=== PATIENT | female | born 1945 | race Caucasian/White ===

== ENCOUNTER 2018-02-02 21:39 | Inpatient (IN) | payer OTHER ==
[2018-02-02] MEDS ORDERED: FENTANYL CITR 100 MCG/2 ML ONE (22:45)
[2018-02-02] MEDS ORDERED: ONDANSETRON 4 MG/2 ML VIAL ONE (22:45)
[2018-02-02] MEDS ORDERED: NA CHLORIDE 0.9% 500 ML ONE (22:46)
--- NOTE | 2018-02-02 23:32 | EDPHYS ---
Physician Documentation [facility] Name: Zoe Jon Age: 72 yrs Sex: Female : 1945 Arrival Date: 02/02/2018 Time: 21:50 Bed 14 Private MD: Selena Sofia F ED Physician Feliberto Oconnor HPI: 02/02 22:20 This 72 yrs old Female presents to ER via Wheelchair with complaints of Leg dixie Pain. 22:20 The patient presents with decreased range of motion, pain, that is acute. The dixie complaints affect the right ankle, right Achilles and anterior aspect of right ankle. Context: resulted from the patient falling, the patient is not able to bear weight, the patient is able to ambulate, with moderate difficulty. Onset: The symptoms/episode began/occurred 2 week(s) ago. Modifying factors: The symptoms are alleviated by elevating leg, remaining still, the symptoms are aggravated by movement, weight bearing. Associated signs and symptoms: The patient has no apparent associated signs or symptoms. Treatment prior to arrival includes: icing the affected extremity, over the counter medications. Severity of symptoms: At their worst the symptoms were mild, moderate, in the emergency department the symptoms are unchanged. The patient has not experienced similar symptoms in the past. Historical: - Allergies: 21:57 Cephalexin Monohydrate; fc - Home Meds: 21:57 lisinopril 30 mg oral tab 1 tab once daily [Active]; metoprolol tartrate 25 mg oral tab fc 1 tab once daily [Active]; furosemide 20 mg Oral tab every other day [Active]; simvastatin 10 mg Oral tab 1 tab nightly [Active]; amlodipine 2.5 mg tab 1 tab once daily [Active]; Warfarin 3.25 mg Oral once daily [Active]; Novolin 70/30 Innolet Sub-Q 20 units in morning and 15 un its every evening [Active]; Neha-Vivi 0.8 mg oral tab daily [Active]; Combigan 0.2-0.5 % ophthalmic drop 1 drop every 12 hours [Active]; Lumigan 0.01 % ophthalmic drop nightly [Active]; - PMHx: 21:57 CKD; Diabetes - NIDDM; Glaucoma; High Cholesterol; Hypertension; Pacemaker; fc - Immunization history:: Last tetanus immunization: unknown. - Social history:: Smoking status: Patient/guardian denies using tobacco. - Ebola Screening: : Patient negative for fever greater than or equal to 101.5 degrees Fahrenheit, and additional compatible Ebola Virus Disease symptoms Patient denies exposure to infectious person Patient denies travel to an Ebola-affected area in the 21 days before illness onset. - Family history:: not pertinent. ROS: 22:20 Constitutional: Negative for fever, chills, and weight loss, Eyes: Negative for injury, dixie pain, redness, and discharge, ENT: Negative for injury, pain, and discharge, Neck: Negative for injury, pain, and swelling, Cardiovascular: Negative for chest pain, palpitations, and edema, Respiratory: Negative for shortness of breath, cough, wheezing, and pleuritic chest pain, Abdomen/GI: Negative for abdominal pain, nausea, vomiting, diarrhea, and constipation, Back: Negative for injury and pain, : Negative for injury, bleeding, discharge, and swelling, Skin: Negative for injury, rash, and discoloration, Neuro: Negative for headache, weakness, numbness, tingling, and seizure, Psych: Negative for depression, anxiety, suicide ideation, homicidal ideation, and hallucinations, Allergy/Immunology: Negative for hives, rash, and allergies, Endocrine: Negative for neck swelling, polydipsia, polyuria, polyphagia, and marked weight changes, Hematologic/Lymphatic: Negative for swollen nodes, abnormal bleeding, and unusual bruising. 22:20 MS/extremity: Positive for decreased range of motion, pain, swelling, tenderness, of the right ankle and anterior aspect of right ankle. Exam: 22:20 Constitutional: This is a well developed, well nourished patient who is awake, alert, dixie and in no acute distress. Head/Face: Normocephalic, atraumatic. Eyes: Pupils equal round and reactive to light, extra-ocular motions intact. Lids and lashes normal. Conjunctiva and sclera are non-icteric and not injected. Cornea within normal limits. Periorbital areas with no swelling, redness, or edema. ENT: Nares patent. No nasal discharge, no septal abnormalities noted. Tympanic membranes are normal and external auditory canals are clear. Oropharynx with no redness, swelling, or masses, exudates, or evidence of obstruction, uvula midline. Mucous membranes moist. Neck: Trachea midline, no thyromegaly or masses palpated, and no cervical lymphadenopathy. Supple, full range of motion without nuchal rigidity, or vertebral point tenderness. No Meningismus. Chest/axilla: Normal chest wall appearance and motion. Nontender with no deformity. No lesions are appreciated. Cardiovascular: Regular rate and rhythm with a normal S1 and S2. No gallops, murmurs, or rubs. Normal PMI, no JVD. No pulse deficits. Respiratory: Lungs have equal breath sounds bilaterally, clear to auscultation and percussion. No rales, rhonchi or wheezes noted. No increased work of breathing, no retractions or nasal flaring. Abdomen/GI: Soft, non-tender, with normal bowel sounds. No distension or tympany. No guarding or rebound. No evidence of tenderness throughout. Back: No spinal tenderness. No costovertebral tenderness. Full range of motion. Female : Normal external genitalia. Skin: Warm, dry with normal turgor. Normal color with no rashes, no lesions, and no evidence of cellulitis. Neuro: Awake and alert, GCS 15, oriented to person, place, time, and situation. Cranial nerves II-XII grossly intact. Motor strength 5/5 in all extremities. Sensory grossly intact. Cerebellar exam normal. Normal gait. Psych: Awake, alert, with orientation to person, place and time. Behavior, mood, and affect are within normal limits. 22:20 Musculoskeletal/extremity: DVT Exam: pain, swelling, tenderness, positive Homans' sign noted on exam, bluish discoloration, erythema, increased warmth, that is mild. Vital Signs: 21:50 BP 148 / 64; Pulse 86; Resp 18; Temp 97.9(O); Pulse Ox 98% on R/A; Weight 84.37 kg (R); fc Height 5 ft. 2 in. (157.48 cm) (R); Pain 10/10; 22:10 BP 145 / 87; Pulse 80; Resp 18; Pulse Ox 100% on R/A; lc1 22:30 BP 145 / 47; Pulse 79; Resp 18; Pulse Ox 99% on R/A; Pain 10/10; lc1 23:15 BP 157 / 53; Pulse 80; Resp 18; Pulse Ox 100% on R/A; Pain 10/10; lc1 08 00:15 BP 153 / 96; Pulse 78; Resp 18; Pulse Ox 100% on R/A; lc1 02/02 21:50 Body Mass Index 34.02 (84.37 kg, 157.48 cm) fc MDM: 02/02 22:15 Patient medically screened. [facility] 22:23 Data reviewed: vital signs, nurses notes, EKG, radiologic studies. [facility] 02/02 22:20 Order name: CBC with Diff; Complete Time: 01:01 [facility] 02/02 22:24 Order name: Ptt, Activated; Complete Time: 01:01 [facility] 02/02 22:24 Order name: PT-INR; Complete Time: 01:01 [facility] 02/02 23:42 Order name: Basic Metabolic Panel EDMS 02/02 23:42 Order name: Basic Metabolic Panel EDMS 02/02 23:42 Order name: CBC with Automated Diff EDMS 02/02 23:42 Order name: CBC with Automated Diff EDMS 02/02 23:42 Order name: Basic Metabolic Panel; Complete Time: 01:01 [facility] 02/02 23:42 Order name: Ckmb; Complete Time: 01:01 [facility] 02/02 23:42 Order name: CPK; Complete Time: 01:01 [facility] 02/02 23:42 Order name: LFT's; Complete Time: 01:01 [facility] 02/02 23:42 Order name: Magnesium; Complete Time: 01:01 [facility] 02/02 23:42 Order name: NT PRO-BNP; Complete Time: 01:01 [facility] 02/02 22:20 Order name: Ankle Right 3 View XRAY [facility] 02/02 22:20 Order name: Tib Fib Right XRAY [facility] 02/02 22:20 Order name: US Extremity Venous Unilateral Ltd [facility] 02/02 23:29 Order name: Splint - Ankle: Posterior; Complete Time: 01:13 [facility] 02/02 23:42 Order name: CONS Physician Consult EDSC 02/02 23:42 Order name: CONS Physician Consult EDMS 02/02 23:42 Order name: Troponin (emerg Dept Use Only); Complete Time: 01:01 [facility] 02/02 23:42 Order name: XRAY Chest (1 view) [facility] 02/02 23:42 Order name: EKG; Complete Time: 23:43 [facility] 02/02 23:42 Order name: Cardiac monitoring; Complete Time: 00:22 [facility] 02/02 23:42 Order name: EKG - Nurse/Tech; Complete Time: 00:22 [facility] 02/02 23:42 Order name: IV Saline Lock; Complete Time: 23:43 [facility] 02/02 23:42 Order name: Labs collected and sent; Complete Time: 23:43 [facility] 02/02 23:42 Order name: O2 Per Protocol; Complete Time: 23:43 [facility] 02/02 23:42 Order name: O2 Sat Monitoring; Complete Time: 23:43 [facility] 02/02 23:42 Order name: Urine Dipstick-Ancillary (obtain specimen); Complete Time: 00:30 [facility] Administered Medications: 23:30 Drug: NS 0.9% 500 ml Route: IV; Rate: bolus; Site: left forearm; [facility] 02/03 00:29 Follow up: IV Status: Infusion continued upon admission [facility] 02/02 23:30 Drug: fentaNYL (PF) 25 mcg Route: IVP; Site: left forearm; [facility] 02/03 00:28 Follow up: Response: No adverse reaction [facility] 02/02 23:30 Drug: fentaNYL (PF) 25 mcg Route: IVP; Site: left forearm; [facility] 02/03 00:27 Follow up: Response: No adverse reaction [facility] 02/02 23:30 Drug: Zofran 4 mg Route: IVP; Site: left forearm; [facility] 02/03 00:27 Follow up: Response: No adverse reaction [facility] Disposition: 02/02/18 23:32 Hospitalization ordered by Selena Sofia for Observation. Preliminary diagnosis are Fall due to bumping against object, Trimalleolar fracture of lower leg - right, Obesity, unspecified, Type 2 diabetes mellitus, Elevated white blood cell count, Anemia, unspecified, Unspecified kidney failure. - Bed requested for Telemetry/MedSurg (observation). - Status is Observation. lc1 - Condition is Stable. - Problem is new. - Symptoms have improved. UTI on Admission? No Signatures: Dispatcher [employer] Ryan Jarrett2 Feliberto Oconnor MD MD cha Chretien, Felicia RN RN Karen Vital 1 Corrections: (The following items were deleted from the chart) 02/02 23:53 22:20 COMPREHENSIVE METABOLIC PANEL+C.LAB.BRZ ordered. EDSC EDMS 02/03 00:01 02/02 23:32 Hospitalization Ordered by Selena Sofia MD for Observation. Preliminary rg2 diagnosis is Fall due to bumping against object; Trimalleolar fracture of lower leg - right; Obesity, unspecified; Type 2 diabetes mellitus. Bed requested for Telemetry/MedSurg (observation). Status is Observation. Condition is Stable. Problem is new. Symptoms have improved. UTI on Admission? No. dixie 02/03 01:03 00:01 02/02/2018 23:32 Hospitalization Ordered by Selena Sofia MD for Observation. dixie Preliminary diagnosis is Fall due to bumping against object; Trimalleolar fracture of lower leg - right; Obesity, unspecified; Type 2 diabetes mellitus. Bed requested for Telemetry/MedSurg (observation). Status is Observation. Condition is Stable. Problem is new. Symptoms have improved. UTI on Admission? No. rg2 01:45 01:03 02/02/2018 23:32 Hospitalization Ordered by Selena Sofia MD for Observation. lc1 Preliminary diagnosis is Fall due to bumping against object; Trimalleolar fracture of lower leg - right; Obesity, unspecified; Type 2 diabetes mellitus; Elevated white blood cell count; Anemia, unspecified; Unspecified kidney failure. Bed requested for Telemetry/MedSurg (observation). Status is Observation. Condition is Stable. Problem is new. Symptoms have improved. UTI on Admission? No. dixie
--- NOTE | 2018-02-02 23:32 | ER ---
Nurse's Notes [facility] Name: Zoe Jon Age: 72 yrs Sex: Female : 1945 Arrival Date: 02/02/2018 Time: 21:50 Bed 14 Private MD: Selena Sofia F Diagnosis: Fall due to bumping against object;Trimalleolar fracture of lower leg-right;Obesity, unspecified;Type 2 diabetes mellitus;Elevated white blood cell count;Anemia, unspecified;Unspecified kidney failure Presentation: 02/02 21:50 Presenting complaint: Patient states: that she was climbing into the bus and fell. fc States that she hurt her right leg, ankle and foot. The pain has continued to get worse with time. Now leg is swollen. Transition of care: patient was not received from another setting of care. Onset of symptoms was January 19, 2018. Risk Assessment: Do you want to hurt yourself or someone else? Patient reports no desire to harm self or others. Initial Sepsis Screen: Does the patient meet any 2 criteria? No. Patient's initial sepsis screen is negative. Does the patient have a suspected source of infection? No. Patient's initial sepsis screen is negative. Care prior to arrival: Medication(s) given: Tylenol, last dose yesterday. 21:50 Method Of Arrival: Wheelchair 21:50 Acuity: TRISTAN 4 fc Historical: - Allergies: 21:57 Cephalexin Monohydrate; fc - Home Meds: 21:57 lisinopril 30 mg oral tab 1 tab once daily [Active]; metoprolol tartrate 25 mg oral tab fc 1 tab once daily [Active]; furosemide 20 mg Oral tab every other day [Active]; simvastatin 10 mg Oral tab 1 tab nightly [Active]; amlodipine 2.5 mg tab 1 tab once daily [Active]; Warfarin 3.25 mg Oral once daily [Active]; Novolin 70/30 Innolet Sub-Q 20 units in morning and 15 un its every evening [Active]; Neha-Vivi 0.8 mg oral tab daily [Active]; Combigan 0.2-0.5 % ophthalmic drop 1 drop every 12 hours [Active]; Lumigan 0.01 % ophthalmic drop nightly [Active]; - PMHx: 21:57 CKD; Diabetes - NIDDM; Glaucoma; High Cholesterol; Hypertension; Pacemaker; fc - Immunization history:: Last tetanus immunization: unknown. - Social history:: Smoking status: Patient/guardian denies using tobacco. - Ebola Screening: : Patient negative for fever greater than or equal to 101.5 degrees Fahrenheit, and additional compatible Ebola Virus Disease symptoms Patient denies exposure to infectious person Patient denies travel to an Ebola-affected area in the 21 days before illness onset. - Family history:: not pertinent. Screenin:53 Abuse screen: Denies threats or abuse. Nutritional screening: No deficits noted. fc Tuberculosis screening: No symptoms or risk factors identified. Fall Risk Fall in past 12 months (25 points). No secondary diagnosis (0 pts). No IV (0 pts). Ambulatory Aid- Crutches/Cane/Walker (15 pts). Gait- Weak (10 pts.). Mental Status- Overestimates/Forgets Limitations (15 pts.). Total Osborn Fall Scale indicates Low Risk Score (25-44 pts). Fall prevention measures have been instituted. Side Rails Up X 2 Placed close to Nursing Station Frequent Obs/Assesments occuring As available Patient and Family Educated on Fall Prevention Program and strategies. Assessment: 22:10 General: Appears uncomfortable, Behavior is calm, cooperative. Pain: Complains of pain lc1 in right leg and anterior aspect of right ankle and right Achilles and right ankle Pain currently is 10 out of 10 on a pain scale. Quality of pain is described as aching, throbbing. Neuro: No deficits noted. Cardiovascular: Reports has pacemaker that is supposed to be checked soon. Respiratory: No deficits noted. GI: No deficits noted. : No signs and/or symptoms were reported regarding the genitourinary system. EENT: No signs and/or symptoms were reported regarding the EENT system. Derm: scabs to bilateral arms. Musculoskeletal: Reports pain in right leg and anterior aspect of right ankle and right Achilles and right ankle since several weeks ago that has gotten worse. Patient has decreased ROM to Right ankle with some non pitting swelling noted. 23:28 Reassessment: No changes from previously documented assessment. Patient and/or family lc1 updated on plan of care and expected duration. Pain level reassessed. 02/03 00:22 Reassessment: No changes from previously documented assessment. Patient and/or family lc1 updated on plan of care and expected duration. Pain level reassessed. Vital Signs: 02/02 21:50 BP 148 / 64; Pulse 86; Resp 18; Temp 97.9(O); Pulse Ox 98% on R/A; Weight 84.37 kg (R); Height 5 ft. 2 in. (157.48 cm) (R); Pain 10/10; 22:10 BP 145 / 87; Pulse 80; Resp 18; Pulse Ox 100% on R/A; lc1 22:30 BP 145 / 47; Pulse 79; Resp 18; Pulse Ox 99% on R/A; Pain 10/10; lc1 23:15 BP 157 / 53; Pulse 80; Resp 18; Pulse Ox 100% on R/A; Pain 10/10; lc1 02/03 00:15 BP 153 / 96; Pulse 78; Resp 18; Pulse Ox 100% on R/A; lc1 02/02 21:50 Body Mass Index 34.02 (84.37 kg, 157.48 cm) ED Course: 02/02 21:50 Patient arrived in ED. 21:50 Selena Sofia MD is Private Physician. 21:50 Arm band placed on Patient placed in an exam room, on a stretcher. 21:52 Triage completed. 21:53 Bed in low position. Call light in reach. fc 22:15 Feliberto Oconnor MD is Attending Physician. dixie 22:20 Karen Ch is Primary Nurse. 1 22:57 X-ray completed. Portable x-ray completed in exam room. Patient tolerated procedure bb2 well. 22:58 Ankle Right 3 View XRAY In Process Unspecified. EDMS 22:58 Tib Fib Right XRAY In Process Unspecified. EDMS 23:19 Ultrasound completed. Patient tolerated well. aa4 23:19 US Extremity Venous Unilateral Ltd In Process Unspecified. EDMS 23:29 Selena Sofia MD is Hospitalizing Provider. dixie 23:33 Inserted saline lock: 22 gauge in left wrist, using aseptic technique. rg2 02/03 00:22 No provider procedures requiring assistance completed. Patient admitted, IV remains in [address] intact. 00:35 Awaiting disposition. 1 01:01 Orthoglass splint: Posterior short lleg splint applied on right leg. rg2 Administered Medications: 02/02 23:30 Drug: NS 0.9% 500 ml Route: IV; Rate: bolus; Site: left forearm; [facility] 02/03 00:29 Follow up: IV Status: Infusion continued upon admission [facility] 02/02 23:30 Drug: fentaNYL (PF) 25 mcg Route: IVP; Site: left forearm; [facility] 02/03 00:28 Follow up: Response: No adverse reaction [facility] 02/02 23:30 Drug: fentaNYL (PF) 25 mcg Route: IVP; Site: left forearm; [facility] 02/03 00:27 Follow up: Response: No adverse reaction [facility] 02/02 23:30 Drug: Zofran 4 mg Route: IVP; Site: left forearm; [facility] 02/03 00:27 Follow up: Response: No adverse reaction [facility] Outcome: 02/02 23:32 Decision to Hospitalize by Provider. [facility] 02/03 00:24 Condition: good [facility] Instructed on the need for admit. 00:39 Admitted to Tele accompanied by tech, via stretcher, room 413, Report called to [facility] jennifer Estrada 01:45 Patient left the ED. [facility] Signatures: Dispatcher [employer] EDMS Ryan Hudson rg2 Feliberto Oconnor MD MD cha Chretien, Felicia, RN RN Laura Smith aa4 Karen Ch [facility] Milla Ribera2 Corrections: (The following items were deleted from the chart) 02/02 23:19 22:40 Patient taken to ultrasound. via wheelchair. aa4 aa4 23:26 23:21 General: Appears in no apparent distress. 1 1 02/03 00:46 00:15 BP 153 / 96; Pulse 78bpm; Resp 18bpm; Pulse Ox 100% 2 lpm Nasal Cannula; 1 1 00:47 00:39 Admitted to Tele [place] [id number]
[2018-02-02] MEDS ORDERED: ONDANSETRON 4 MG/2 ML VIAL IV PRN (23:39)
[2018-02-02] MEDS ORDERED: ACETAMINOPHEN 500 MG TAB PO PRN (23:39)
[2018-02-02 23:54] LABS: Absolute Lymphocytes (CBC) 1.1 K/uL (0.7-4.9); Absolute Monocytes 0.9 K/uL (0.1-1.3); Basophils % 0.6 % (0-1.3); Eosinophils % 0.4 % (0-4.4); Hematocrit 28.1 % (36.0-45.0); Lymphocytes % 7.8 % (15.3-44.8); MCH 32.6 pg (27.0-35.0); MCV 94.6 fL (80-100); Monocytes % 6.5 % (3.3-12.3); RBC Red Blood Cell Count 2.97 M/uL (3.86-4.86)
[2018-02-03 00:01] LABS: Protime INR 3.79
[2018-02-03 00:17] LABS: Albumin 3.3 g/dL (3.4-5.0); Bilirubin Direct 0.2 mg/dL (0-0.2); Bilirubin Total 0.6 mg/dL (0.2-1.0); CKMB Creatine Kinase MB 1.2 ng/mL (0.3-3.6); Potassium 4.4 mmol/L (3.5-5.1); Protein, Total 7.1 g/dL (6.4-8.2)
[2018-02-03] MEDS: MORPHINE 2 MG/ML SYR IV PRN ×2 (01:11→19:41)
[2018-02-03] MEDS ORDERED: MORPHINE 4 MG/ML SYR ONE (01:13)
[2018-02-03] MEDS: NA CHLORIDE 0.9% 1,000 ML IV SCH ×3 (02:38→20:13)
--- NOTE | 2018-02-03 05:33 | EKG ---
Test Date: 2018-02-03 Test Time: 00:15:32 Box Closing Machine Operator: RAMILA MEASUREMENT RESULTS: Intervals: Rate: 80 LA: 156 QRSD: 170 QT: 476 QTc: 548 Juliette: P: 78 LA: 156 QRS: -86 T: 77 INTERPRETIVE STATEMENTS: AV dual-paced rhythm Abnormal ECG Compared to ECG 08/13/2016 15:02:51 No significant changes Electronically Signed On 02-03-18 05:33:07 CDT by Javier Streeter
[2018-02-03 06:18] LABS: Absolute Lymphocytes (CBC) 1.8 K/uL (0.7-4.9); Absolute Monocytes 1.1 K/uL (0.1-1.3); Absolute Neutrophil 8.8 K/uL (1.8-8.0); Basophils % 0.9 % (0-1.3); Eosinophils % 0.7 % (0-4.4); Hematocrit 26.5 % (36.0-45.0); Lymphocytes % 14.8 % (15.3-44.8); MCH 32.6 pg (27.0-35.0); MCV 94.1 fL (80-100); MPV 7.2 fL (7.6-11.3); Monocytes % 9.3 % (3.3-12.3); RBC Red Blood Cell Count 2.81 M/uL (3.86-4.86)
[2018-02-03 06:31] LABS: Potassium 4.2 mmol/L (3.5-5.1)
--- NOTE | 2018-02-03 07:03 | RAD REPORT ---
EXAM DESCRIPTION: RAD - Chest Single View - 02/03/2018 12:33 am CLINICAL HISTORY: Cough, fall, chest pain COMPARISON: November 2013 TECHNIQUE: AP portable chest image was obtained 0011 hour . FINDINGS: No focal consolidation or mass. Pacemaker is in place. Cardiac valve surgery changes are a gain noted. Mild cardiomegaly is present. This is similar or only very slightly increased over the comparison. Va sculature is within normal limits. There is an increase in the interstitial markings in the central a spect of the chest, extending into each base. Acute interstitial edema or infiltrate possible as well . Progressive fibrosis would be a lesser consideration. No measurable pleural effusion and no pneumot horax. No gross bony abnormality seen. No acute aortic findings suspected. IMPRESSION: Mild cardiomegaly similar are fractionally increased from 2014. Pulmonary vasculature wi thin normal limits. Increased interstitial markings likely interstitial edema or infiltrate. Progressive fibrosis is poss ible.
--- NOTE | 2018-02-03 08:09 | RAD REPORT ---
EXAM DESCRIPTION: RAD - Ankle Right 3 View - 02/02/2018 10:58 pm CLINICAL HISTORY: Fall, ankle pain COMPARISON: None. FINDINGS: An oblique fracture is present through the distal fibula. There is approximately 2-3 mm of lateral displacement along the superior margin of the fracture line. There is a minimal lateral subl uxation of the talus relative to the tibial plafond. A large distal tibia fracture fragment is presen t. There is a fracture that traverses the posterior malleolus and transverse medial malleolus fractur e. Underlying osteopenic changes are present. Significant circumferential soft tissue swelling. IMPRESSION: Right ankle tri malleolus fracture as detailed.
--- NOTE | 2018-02-03 08:10 | RAD REPORT ---
EXAM DESCRIPTION: RAD - Tib Fib Right - 02/02/2018 10:58 pm CLINICAL HISTORY: Fall, ankle pain, leg pain COMPARISON: November 2016. FINDINGS: Tibia and fibula fractures at the ankle are separately detailed. Proximal tibia shows no acute fracture in the tibia and fibula shafts are otherwise intact. Contusion and edema changes extend to the mid calf level. Arterial calcifications are present. No foreign body or other soft tissue abnormality. IMPRESSION: Distal tibia and fibula fractures are separately detailed. Remainder of the leg shows no acute finding.
--- NOTE | 2018-02-03 08:18 | RAD REPORT ---
EXAM DESCRIPTION: VAS - Extremity Venous Uni Ltd - 02/02/2018 11:21 pm CLINICAL HISTORY: Right leg pain and swelling COMPARISON: None. TECHNIQUE: Real-time sonographic evaluation of the right lower extremity deep venous systems was per formed. FINDINGS: Normal compressibility, flow augmentation, phasic flow and spontaneous flow are identified in the right lower extremity common femoral, superficial femoral, popliteal and posterior tibial vei ns. No intraluminal filling defects seen. IMPRESSION: No DVT in the right lower extremity.
[2018-02-03] MEDS ORDERED: VITAMIN K (ADULT) 10 MG/ML SQ SCH (12:00)
[2018-02-03 12:02] LABS: Urine Appearance CLEAR; Urine Bilirubin NEGATIVE (NEG); Urine Blood 1+ (NEG); Urine Color YELLOW; Urine Glucose NEGATIVE (NEG); Urine Microscopic Reflex ORDER UMIC; Urine Protein 2+ (NEG); Urine Urobilinogen 0.2 mg/dL (0.2-1.0); Urine pH 5.5 (5.0-7.0)
[2018-02-03 12:10] LABS: Urine Bacteria <20 /HPF (<20); Urine Culture Reflex Order NOT NEEDED; Urine Mucus 1+ /HPF (NONE SEEN)
--- NOTE | 2018-02-03 12:21 | ECHO ---
HEIGHT: 5 ft 2 in WEIGHT: 177 lb 0 oz DATE OF STUDY: 02/03/[address]: Javier Streeter MD 2-DIMENSIONAL: YES M.MODE: YES DOPPLER: YES COLOR FLOW: YES TDS: NO PORTABLE: NO DEFINITY: NO BUBBLE STUDY: NO DIAGNOSIS: PREOP CARDIAC HISTORY: CATHERIZATION: YES SURGERY: YES PROSTHETIC VALVE: MITRAL VALVE PACEMAKER: YES MEASUREMENTS (cm) DIASTOLIC (NORMALS) SYSTOLIC (NORMALS) IVSd 1.4 (0.6-1.2) LA Diam (1.9-4.0) LVEF 77% LVIDd 3.2 (3.5-5.7) LVIDs 1.8 (2.0-3.5) %FS 44% LVPWd 1.6 (0.6-1.2) Ao Diam 2.9 (2.0-3.7) 2 DIMENSIONAL ASSESSMENT: RIGHT ATRIUM: PACEMAKER LEFT ATRIUM: DILATED RIGHT VENTRICLE: PACEMAKER LEFT VENTRICLE: LEFT VENTRICULAR HYPERTROPHY TRICUSPID VALVE: NORMAL MITRAL VALVE: PROSTHETIC, MECHANICAL PULMONIC VALVE: NORMAL AORTIC VALVE: SCLEROSIS PERICARDIAL EFFUSION: NONE AORTIC ROOT: NORMAL LEFT VENTRICULAR WALL MOTION: HYPERDYNAMIC. DOPPLER/COLOR FLOW: NO AORTIC STENOSIS OR AORTIC REGURGITATION OR MITRAL STENOSIS. NORMAL MECHANICAL MITRAL PROSTHETIC DOPPLER. COMMENTS: NORMAL LEFT VENTRICULAR EJECTION FRACTION. LEFT VENTRICULAR HYPERTROPHY. DILATED LEFT ATRIUM. PACEMAKER IN RIGHT VENTRICLE AND RIGHT ATRIUM. MECHANICAL MITRAL VALVE REPLACEMENT, NORMAL FUNCTION. AORTIC SCLEROSIS WITH NO AORTIC STENOSIS OR AORTIC REGURGITATION. TECHNOLOGIST: JJ ABRAHAM
--- NOTE | 2018-02-03 14:52 | CON ---
Date of Consultation: 02/03/2018 Consulting Physician: Westley Fairchild M.D. Reason For Consultation: Right ankle pain. History Of Present Illness: Ms. Jon is a 72-year-old female with history of diabetes, mitral valve replacement, and stage 4 kidney disease, presented to the ER yesterday with increasing right knee pain and inability to bear weight. She reports injury to her right ankle approximately 2 weeks ago after stated a twisting injury while getting on a bus. She reports subsequent pain and swelling to the ankle, however, she thought it would have sprained and needs to mobilize on her right lower extremity. States yesterday she was unable to ambulate and was brought to the emergency room. X-rays in the emergency room demonstrated a displaced trimalleolar ankle fracture. She was placed into a splint and admitted to the floor. She reports pain with the right ankle and some mild neuropathy to right lower extremity secondary to her diabetes. She denies any other musculoskeletal complaints at this time. She denies any fever or chills. Review of Systems: As above, otherwise negative. Past Medical History: Includes diabetes, stage 4 kidney disease, and history of mitral valve replacement. Past Surgical History: Left ankle surgery and mitral valve replacement. Medications: Coumadin and insulin. Allergies: TO KEFLEX. Social History: She denies tobacco or alcohol use. Lives at an assisted living facility. Physical Examination: General: : No apparent distress. HEENT: Normocephalic, atraumatic. Neck: Supple. Cardiovascular: Brisk cap refill to all digits. Chest: Nonlabored breathing. Abdomen: Nondistended. Psychiatric: Responds to exam. Musculoskeletal: Right lower extremity, she has some moderate swelling in her right lower extremity. No skin breakdown. No blisters noted. No erythema or signs of infection. Tenderness to palpation over the medial and lateral aspects of the ankle. Gross sensation intact over the dorsal and plantar surface dorsal and plantar surface of her foot. Positive EHL, FHL, gastrocsoleus complex, tibialis anterior. Radiographic Data: X-rays of her right ankle demonstrates a trimalleolar ankle fracture with some impaction to the anterolateral tibial plafond. Assessment And Plan: Zoe is a 72-year-old female with impacted right trimalleolar ankle fracture. I discussed with the patient at length her diagnosis as well as treatment options. Believe that she sustained this impaction likely secondary to ambulating on her fractured ankle for 2 weeks. We will proceed with surgical fixation with plate and screws when her INR normalizes. She sees Dr. Stone, her plant pathologist for followup with cardiac clearance as well. She will be nonweightbearing to the right lower extremity. She will remain in the posterior splint placed by the ER at this time. RIP/FERNANDO Voice ID: [id number] Report ID: [id number] MTDIsha
--- NOTE | 2018-02-03 16:10 | CON ---
History Of Present Illness: Ms. Jon is a 72-year-old. She was getting into a van when she fe ll and her right ankle was broken and the surgeon has recommended open reduction and internal fixatio n. I am asked to help manage it difficult her heart problem. She has a prosthetic mitral valve. Th e mechanical prosthesis implanted 2010 seems to be functioning well. She has a pacemaker and she has chronic Coumadin therapy. Her INR today was 3.7+. Her outpatient medications have been multivitami n, simvastatin, metoprolol, furosemide, Lumigan eye drops, lisinopril, insulin, dorzolamide eye drops , brimonidine and timolol eye drops, amlodipine, calcium carbonate, insulin, and Coumadin 3.5 mg radha y. Her pacemaker is a [employer]tr[employer] device. She is not having chest pain, shortness of breath, syncope, presyncope, palpitations, or any other cardiac symptoms. Physical Examination: Vital Signs: 5 feet 3 inches, 177 pounds. General: Alert, oriented, pleasant, not in distress. Lungs: Clear. Heart: Reveals prosthetic heart tones that are within normal limits. There is a systolic murmur and a diastolic blowing murmur, both on the cardiac exam along with mechanical prosthetic heart tones. Abdomen: Soft. Extremities: Trace edema. Distal pulses palpable. Laboratory Data: Reveals a creatinine of 2.0 and INR of 3.79. Hemoglobin 9.2, hematocrit 26.5. Impression: The patient needs to stop taking Coumadin. She needs to get vitamin K and when her INR is less than 2.5, start Lovenox. The Lovenox could be held 12 hours before her surgery. Lovenox dejan uld be restarted as soon as feasible after the surgery and we get her back on Coumadin. Her heart it self does not pose a significant risk for the surgery. The valvular lesions are manageable, not in n eed of emergency intervention for any of those. We will make sure her pacemaker is functioning normally. TR/FERNANDO Voice ID: [id number] Report ID: [id number]
[2018-02-03] MEDS: INSULIN 70/30 100 UNITS/ML SQ SCH (17:00)
--- NOTE | 2018-02-03 19:34 | HP ---
Date of Admission: 02/02/2018 History Of Present Illness: A 72-year-old female, who presented to the emergency room with right ank le pain when she was in the bus trying to sit down. She lost her balance and twisted her right ankle and fell and was found to have primary fracture in the leg and ankle, and she was admitted for that. The patient denies any chest pain, shortness of breath, dizziness, or palpitation. She said she ju st tripped and before happened. Review of Systems: Cardiovascular: No complaints. Skeletomuscular: As above. Respiratory: No complaints. ENT: No complaints. Gastrointestinal: No complaints. Neurological: No complaints. Past Medical History: 1.The patient is on warfarin for mechanical heart valve that was placed years ago. 2.Hypertension. 3.Hyperlipidemia. 4.Type 2 diabetes mellitus. 5.History of pacemaker placement. 6.Chronic kidney disease secondary to diabetes and bilateral glaucoma. Social History: No smoking, alcohol, or drug abuse history. Family History: Noncontributing. Medications: Include lisinopril 30 mg p.o. daily, metoprolol 25 mg p.o. daily, furosemide 20 mg p.o. daily, simvastatin 10 mg p.o. daily, warfarin 3.5 once daily, Novolin 70/30 subcutaneous 20 units in the morning and 15 units in the evening, Neha-Vivi 0.8 mg daily, and ophthalmic eye solutions, Combi paige and Lumigan. Allergies: CEPHALEXIN. Physical Examination: Vital Signs: Blood pressure 145/45, pulse 79, temperature 97.9. Heart: Regular rate and rhythm. Chest: Clear to auscultation. Abdomen: Soft, benign, nontender. Bowel sounds are normoactive. Extremities: Right lower extremity dressed at the ankle. No pitting edema. No cyanosis. Periphera l pulses are felt. Neurological: Alert, oriented, nonfocal. Grossly intact. Diagnostic Data: Right ankle x-ray showed trimalleolar fracture. Tibia and fibula x-ray showed the fracture as mentioned earlier. Lower extremity venous study; no DVT. EKG showed AV dual pacemaker r hythm. Chest x-ray showed mild cardiomegaly with fibrotic changes evident in the pulmonary vasculatu re rather than edema. Cardiac echo done showed left ventricular ejection fraction of 77% with left v entricular hypertrophy, pacemaker placement, mechanical mitral valve shown aortic sclerosis and aorti c stenosis. Laboratory Data: White cell count 11.9, hemoglobin 9.2, hematocrit 26.5, platelets 294. PT 45.3 and INR 3.79. Chemistry; BUN 37, creatinine 2. Rapid troponin 0.02. Urinalysis; no infection. Assessment And Plan: Right ankle fracture. Dr. Fairchild has been consulted. The plan is to operate on her by Thursday when her PT/INR drops to regular the surgery could be done. Cardiology is gabrielle albert consulted for preoperative cardiac clearance because of her cardiac history. We are going to be monitoring PT/INR daily her Coumadin. We will monitor also her CBC and chem-7. Continue her home medicines for her chronic medical illnesses. We will monitor her blood sugar, put her on a sliding scale. The patient has been put also on Zofran and morphine for control of pain and nausea. Look orders for details. ISABELLA/FERNANDO Voice ID: [id number]
[2018-02-03] MEDS: ATORVASTATIN 10 MG TAB PO SCH (20:12)
[2018-02-03] MEDS: HOME MED 1 EA UNK (Brimonidine Tartrate/Timolol [Combigan 0.2%-0.5% Eye Drops] 1 GTT) OPTH SCH (20:13)
[2018-02-03] MEDS ORDERED: DORZOLAMIDE 2% OPTH (10 ML) EACH EYE SCH (21:00)
[2018-02-03] MEDS ORDERED: BIMATOPROST OPHTH DROPS/2.5 ML BTL OPTH SCH (21:00)
[2018-02-04] MEDS: NA CHLORIDE 0.9% 1,000 ML IV SCH ×3 (03:11→20:02)
[2018-02-04 06:03] LABS: Absolute Lymphocytes (CBC) 1.9 K/uL (0.7-4.9); Absolute Monocytes 0.8 K/uL (0.1-1.3); Absolute Neutrophil 5.6 K/uL (1.8-8.0); Basophils % 0.8 % (0-1.3); Eosinophils % 3.6 % (0-4.4); Hematocrit 27.1 % (36.0-45.0); Lymphocytes % 22.1 % (15.3-44.8); MCH 32.8 pg (27.0-35.0); MCV 94.1 fL (80-100); MPV 7.2 fL (7.6-11.3); Monocytes % 9.1 % (3.3-12.3); RBC Red Blood Cell Count 2.88 M/uL (3.86-4.86)
[2018-02-04 06:05] LABS: Protime INR 2.86
[2018-02-04 06:20] LABS: Potassium 4.4 mmol/L (3.5-5.1)
[2018-02-04] MEDS ORDERED: VITAMIN K (ADULT) 10 MG/ML SQ ONE (07:15)
[2018-02-04] MEDS ORDERED: INSULIN 70/30 100 UNITS/ML SQ SCH (08:00)
[2018-02-04] MEDS: METOPROLOL XL 25 MG TAB PO SCH (08:59)
[2018-02-04] MEDS: MULTIVITAMINS,THERAPEUT 1 TAB PO SCH (08:59)
[2018-02-04] MEDS: CALCIUM CARB 500MG/VIT D 200 IU TAB PO SCH (08:59)
[2018-02-04] MEDS: LISINOPRIL 10 MG TAB PO SCH (08:59)
[2018-02-04] MEDS: AMLODIPINE 2.5 MG TAB PO SCH (09:00)
[2018-02-04] MEDS: FUROSEMIDE 20 MG TABLET PO SCH (09:00)
[2018-02-04] MEDS: HOME MED 1 EA UNK (Brimonidine Tartrate/Timolol [Combigan 0.2%-0.5% Eye Drops] 1 GTT) OPTH SCH ×2 (09:00→20:02)
--- NOTE | 2018-02-04 10:56 | PN ---
Ms. Jon seems to be feeling fine. Her INR today was still 2.8. We are going to give her 10 m ore mg of vitamin K subcu. Recheck an INR this afternoon. If it is below 2.5, we could start Loveno x. I think her Lovenox dose based on her renal insufficiency probably is going to be every 16-24 nena rs, so Surgery should probably wait 24 hours after the last dose of Lovenox. If the INR is good, we will give Lovenox until we discuss it with Dr. Fairchild. TR/FERNANDO Voice ID: [id number] Report ID: [id number]
--- NOTE | 2018-02-04 12:36 | P.PN ---
Subjective Date of Service: 02/04/18 Chief Complaint: R ankle fracture Subjective: No new changes pain controlled Physical Examination - Vital Signs Temperature: 97.8 F Blood Pressure: 148/55 Pulse: 80 Respirations: 18 Pulse Ox (%): 99 - Physical Exam General: Alert, In no apparent distress Musculoskeletal: Other (RLE: splint in place; +EHL/FHL; bcr in all digits; sensation grossly intact distally) Assessment And Plan - Plan Zoe is a 72 yo female with a trimalleolar ankle fracture -continue to keep RLE elevated; NWB RLE -plan on ORIF of the right ankle once INR < 1.5 -will keep NPO after midnight to plan on surgery tomorrow if INR normalizes
--- NOTE | 2018-02-04 14:08 | PN ---
Subjective: The patient has no new complaints. Stable. Objective: Vital Signs: Blood pressure 155/82, pulse 84, temperature 97.2. Heart: Regular rate and rhythm. Chest: Clear to auscultation. Abdomen: Soft, benign. Neurological: Alert, oriented, intact. Extremities: No cyanosis. No edema. Right ankle dressed. Laboratory Data: CBC; white cell count 8.7, hemoglobin 9.4, hematocrit 27.1, platelets 282. PT at 3 4.1, INR at 2.86. Chemistry; BUN 31, creatinine 1.88. Assessment And Plan: Right ankle fracture. The patient is clinically stable, pending surgery on her right ankle when her INR drops to below 2.5. Dr. Streeter has seen the patient for cardiac clearance and once her PT/INR drops to below 2.5, we will put her on Lovenox and then we will clear her for jay jonh. Meanwhile, the patient is clinically stable. We will continue current treatment and care. Taisha ruelas for details. MFS/MODL Voice ID: [id number] Report ID: [id number]
[2018-02-04 16:39] LABS: Protime INR 1.73
[2018-02-04] MEDS: INSULIN 70/30 100 UNITS/ML SQ SCH (18:10)
[2018-02-04] MEDS: ATORVASTATIN 10 MG TAB PO SCH (20:02)
[2018-02-05 05:54] LABS: Absolute Lymphocytes (CBC) 1.7 K/uL (0.7-4.9); Absolute Monocytes 0.7 K/uL (0.1-1.3); Basophils % 0.6 % (0-1.3); Eosinophils % 4.3 % (0-4.4); Hematocrit 27.6 % (36.0-45.0); Lymphocytes % 19.3 % (15.3-44.8); MCH 32.5 pg (27.0-35.0); MCV 94.8 fL (80-100); MPV 7.2 fL (7.6-11.3); Monocytes % 8.3 % (3.3-12.3); Protime INR 1.27; RBC Red Blood Cell Count 2.91 M/uL (3.86-4.86)
[2018-02-05] MEDS: METOPROLOL XL 25 MG TAB PO SCH (06:29)
[2018-02-05] MEDS: AMLODIPINE 2.5 MG TAB PO SCH (06:30)
[2018-02-05] MEDS: LISINOPRIL 10 MG TAB PO SCH (07:50)
[2018-02-05] MEDS: CALCIUM CARB 500MG/VIT D 200 IU TAB PO SCH (07:51)
[2018-02-05] MEDS: MULTIVITAMINS,THERAPEUT 1 TAB PO SCH (07:52)
[2018-02-05] MEDS: HOME MED 1 EA UNK (Brimonidine Tartrate/Timolol [Combigan 0.2%-0.5% Eye Drops] 1 GTT) OPTH SCH (07:52)
[2018-02-05] MEDS: HUMALOG MIX 75/25 100 UNITS/ML SQ SCH ×3 (07:52→17:00)
[2018-02-05] MEDS ORDERED: PROPOFOL 200 MG/20 ML VIAL IV ONE (09:47)
[2018-02-05] MEDS ORDERED: FENTANYL CITR 100 MCG/2 ML ONE (09:48)
[2018-02-05] MEDS ORDERED: CLINDAMYCIN INJ 600 MG in NA CHLORIDE 0.9% 50 ML IV ONE (10:30)
[2018-02-05] MEDS ORDERED: NA CHLORIDE 0.9% 500 ML ONE (11:50)
--- NOTE | 2018-02-05 12:03 | PN ---
Subjective: Her INR today is less than 1.5. She will go to surgery 4 hours. After surgery she shou ld resume Lovenox. The dose will be 80 mg every 24 hours. Her creatinine clearance is about 25%. W e do not want to give it every 12 hours and I spoken the issue with Dr. Fairchild. TR/FERNANDO Voice ID: [id number] Report ID: [id number]
[2018-02-05] MEDS ORDERED: Phenylephrine HCl 10 MG/ML 1 ML VIAL ONE (12:27)
[2018-02-05] MEDS ORDERED: ONDANSETRON HCL 40 MG/20 ML VIAL ONE (12:35)
[2018-02-05] MEDS ORDERED: DEXAMETHASONE 10 MG/ML VIAL ONE (13:12)
--- NOTE | 2018-02-05 13:48 | P.BOP ---
Preoperative diagnosis: right trimalleolar ankle fracture Postoperative diagnosis: same Primary procedure: ORIF right trimalleolar ankle fracture Project Construction Manager: NONE,NONE Estimated blood loss: 50 cc Specimen: none Findings: see dictation Anesthesia: General Complications: None Implants: Acumed distal fibula locking plate, 4- 4.0 cannulated screws Fluids & blood products: per anesthesia record Transferred to: Recovery Room Condition: Good
--- NOTE | 2018-02-05 14:02 | RAD REPORT ---
EXAM DESCRIPTION: CT - Ankle Right Wo Con - 02/03/2018 8:14 am CLINICAL HISTORY: Slip and fall, ankle pain, ankle fracture on plain film, surgical planning study COMPARISON: Ankle film February 03 TECHNIQUE: Axial 2 millimeter thick images of the right ankle were obtained. Sagittal and coronal re formatted images were generated and reviewed. FINDINGS: Oblique fracture is present through the distal fibula. There is approximately 3 mm lateral displacement. No angulation deformity. A few small free fracture fragments are seen along the anteri or inferior margin of the fracture plane. There is a large 3 centimeter sized posterior malleolus fracture fragment. Fracture extends to the ce ntral articular surface of the tibial plafond. There is approximately 2 mm of posterior displacement along the fracture plane. Transverse medial malleolus fracture fragment is present with no significant distraction or angulatio n. There is slight widening of the medial aspect of the tibiotalar joint space. The lateral subluxati on of the talus matches the displacement of the fibula. Patient has underlying degenerative cystic changes in the anterior calcaneus, posterior dome of the t alus and tibial plafond Soft tissue contusion and edema surrounds the ankle joint. No large hematoma or foreign body. IMPRESSION: Tri malleolus fracture as detailed.
[2018-02-05] MEDS ORDERED: DOCUSATE NA 100 MG CAP PO PRN (14:05)
[2018-02-05 14:45] LABS: Hematocrit 25.1 % (36.0-45.0)
--- NOTE | 2018-02-05 14:57 | RAD REPORT ---
EXAM DESCRIPTION: RAD - Ankle Right 2 View - 02/05/2018 2:44 pm CLINICAL HISTORY: Fracture fixation COMPARISON: CT imaging February 03, plain films February 02 FINDINGS: Bone screws have been placed fixing previously detailed posterior malleolus and medial mal leolus fractures. Compression plate and screws are in place fixing the distal fibula fracture. Hardware is in good position. Bones are in anatomic alignment. No unexpected finding. IMPRESSION: Right ankle fracture repair findings as detailed.
[2018-02-05] MEDS: CLINDAMYCIN INJ 600 MG in NA CHLORIDE 0.9% 50 ML IV SCH (17:22)
[2018-02-05] MEDS: NA CHLORIDE 0.9% 1,000 ML IV SCH ×2 (17:24→21:45)
[2018-02-05] MEDS: ENOXAPARIN 80 MG/0.8 ML SQ SCH (17:56)
[2018-02-05] MEDS ORDERED: ENOXAPARIN 80 MG/0.8 ML SQ SCH (18:00)
[2018-02-05] MEDS: ATORVASTATIN 10 MG TAB PO SCH (21:49)
--- NOTE | 2018-02-05 22:30 | PN ---
Subjective: The patient had a right ankle surgery done. She is doing well. No new complaint. Objective: Vital Signs: Blood pressure 120/55, pulse 80, and temperature 97.1. Heart: Regular rate and rhythm. Chest: Clear to auscultation. Abdomen: Soft and benign. Neurological: Alert and oriented. Grossly intact. Laboratory Data: The patient's hemoglobin after surgery 8.4 and hematocrit 25.1. PT 15, INR 1.27, B UN 30, creatinine 1.60. Blood sugar fingersticks noted. Assessment And Plan: Postoperative, on the right ankle, the patient is clinically stable. We will g o ahead and resume her warfarin and physical therapy as per Orthopedic at least for the immediate pos toperative period. She will be on Lovenox until Cardiology decides to put her back on warfarin. Tom ruelas for details on the patient. ISABELLA/MODL Voice ID: [id number] Report ID: [id number]
[2018-02-06] MEDS: CLINDAMYCIN INJ 600 MG in NA CHLORIDE 0.9% 50 ML IV SCH ×2 (01:34→08:45)
--- NOTE | 2018-02-06 02:39 | OP ---
Date of Procedure: 02/05/2018 Surgeon: Westley Fairchild MD Preoperative Diagnosis: Right trimalleolar ankle fracture. Postoperative Diagnosis: Right trimalleolar ankle fracture. Procedure Performed: Open reduction and internal fixation of right trimalleolar ankle fracture. Anesthesia: General LMA. Fluids: Per Anesthesia record. Estimated Blood Loss: 40 cc. Implant: Acumed distal fibular locking plate and four 4-0 cannulated screws. Indication For Procedure: Ms. Jon is 72-year-old female who presented to the ER with a 2-week history of right ankle pain and subsequent inability to bear weight. X-rays in the emergency room demonstrated a displaced impacted trimalleolar ankle fracture. I discussed with the patient at length risks and benefits associated with operative and nonoperative treatment and likelihood of posttraumatic arthritis secondary to impaction from walking on her broken ankle , she expressed understanding and elected to proceed with operative treatment. While in the hospital, she waited for her INR to drop to less than 1.5, which indeed did do early this morning on lab check. Description Of Procedure: After informed consent was obtained, the patient was identified in the preoperative holding area. The right lower extremity was marked. The patient was taken back to the operating room, transferred to the operative table in supine fashion, and placed under general LMA anesthesia. The right lower extremity was then prepped and draped in the usual sterile fashion and time-out was initiated. Correct patient and procedure were confirmed and identified. The patient did receive a preoperative prophylactic antibiotic. The right lower extremity was then exsanguinated and tourniquet was inflated to 300 mmHg. An approximately 10 cm longitudinal incision was made centered over the distal fibula, fracture was identified and curetted. There was some mild amount of healing in a displaced position. Once adequate debridement was completed, fracture was then held reduced using 2-point reduction clamp. A distal fibular locking plate was then placed over the lateral aspect of the distal fibula and fixed to the fibular shaft with a single 3.5 cortical screw in bicortical fashion followed by placement of a 4 locking screws in unicortical fashion within the distal fibula. Two remaining cortical screws were placed in the proximal fibular shaft. In a bicortical fashion, there was good overall reduction of the fracture. The wound was then irrigated thoroughly with normal saline. Subcutaneous tissues were approximated using a 2-0 Vicryl. Next, attention was taken in the medial malleolus where approximately a 5 cm curvilinear incision was made centered over the medial malleolus. The fluoroscopy demonstrated overall good reduction of the fracture at the fracture site. Two K-wires were placed in a retrograde fashion with the tip of the medial malleolus centered over the distal tibia and the pins were placed in parallel alignment. Once proper positioning of the pins were confirmed using fluoroscopy, they were overdrilled and 2, size 42, 4- 0 cannulated screws were placed with good overall reduction of the medial malleolus fracture. The pins were then removed and the attention was taken to the posterior malleolar segment. There was overall good reduction on the fracture fragment and 2 pins were placed in the anterior-posterior direction after small stab incisions were made over the anterior aspect of the distal tibia. The pins were measured and the cannulated screw was placed after overdrilling of the proximal cortex and there was good overall reduction of the fracture. The posterior malleolus fracture fragment was noted on both AP and lateral views. A second screw was placed and there was some disruption of the proximal cortex and the screw was somewhat buried and therefore the screw was removed and a washer was placed for increased surface area, and once the washer was placed, there was good overall purchase of the proximal cortex and good reduction of the fracture. The wounds were then irrigated thoroughly with normal saline. There was no widening of the syndesmosis noted. Subcutaneous tissue was approximated using a 2-0 Vicryl. Skin was approximated using 3-0 nylon. Sterile dressings were applied. The patient was placed in a posterior stirrup splint. Awakened and transferred to PACU in stable condition. Postoperative Plan: I spoke with Dr. Streeter. He would like the patient started on Lovenox full dose postoperatively given her history of mitral valve replacement, so we will order that. She will be nonweightbearing of her right lower extremity and Physical Therapy will we consulted. CV/MODL Voice ID: [id number] Report ID: [id number] JERAMIE
[2018-02-06 04:19] LABS: Protime INR 1.17
[2018-02-06 04:21] LABS: Absolute Monocytes 0.6 K/uL (0.1-1.3); Absolute Neutrophil 8.8 K/uL (1.8-8.0); Basophils % 0.3 % (0-1.3); Hematocrit 24.5 % (36.0-45.0); Lymphocytes % 9.7 % (15.3-44.8); MCH 32.5 pg (27.0-35.0); MCV 94.3 fL (80-100); MPV 7.6 fL (7.6-11.3); Monocytes % 5.6 % (3.3-12.3)
[2018-02-06 04:27] LABS: Potassium 4.5 mmol/L (3.5-5.1)
[2018-02-06 04:38] VITALS: BMI 36.3
[2018-02-06] MEDS: MORPHINE 2 MG/ML SYR IV PRN ×3 (06:46→21:20)
[2018-02-06] MEDS: NA CHLORIDE 0.9% 1,000 ML IV SCH ×4 (07:45→21:23)
[2018-02-06] MEDS: FUROSEMIDE 20 MG TABLET PO SCH (08:30)
[2018-02-06] MEDS: AMLODIPINE 2.5 MG TAB PO SCH (08:32)
[2018-02-06] MEDS: LISINOPRIL 10 MG TAB PO SCH (08:33)
[2018-02-06] MEDS: HUMALOG MIX 75/25 100 UNITS/ML SQ SCH ×2 (08:33→17:00)
[2018-02-06] MEDS: CALCIUM CARB 500MG/VIT D 200 IU TAB PO SCH (08:34)
[2018-02-06] MEDS: METOPROLOL XL 25 MG TAB PO SCH (08:34)
[2018-02-06] MEDS: ENOXAPARIN 80 MG/0.8 ML SQ SCH (08:35)
[2018-02-06] MEDS: MULTIVITAMINS,THERAPEUT 1 TAB PO SCH (08:48)
--- NOTE | 2018-02-06 08:53 | P.PN ---
Subjective Date of Service: 02/06/18 Chief Complaint: R ankle fracture Subjective: Tolerating diet pain controlled Physical Examination - Vital Signs Temperature: 98 F Blood Pressure: 144/82 Pulse: 84 Respirations: 18 Pulse Ox (%): 98 - Physical Exam General: Alert, In no apparent distress Musculoskeletal: Other (RLE: splint in place; +EHL/FHL; bcr in all digits) Assessment And Plan - Plan Zoe is a 72 yo female with a trimalleolar ankle fracture s/p ORIF POD#1 -PT to mobilize today; NWB RLE -continue to monitor h/h -on lovenox for DVT prophylaxis and full dose treatment with history of mitral valve replacement -SS for placement
[2018-02-06] MEDS ORDERED: ENOXAPARIN 80 MG/0.8 ML SQ SCH ×2 (09:00)
[2018-02-06] MEDS ORDERED: WARFARIN SODIUM 5 MG TAB PO ONE (09:40)
--- NOTE | 2018-02-06 13:15 | PN ---
Ms. Jon is now on Lovenox. We will resume Coumadin. Continue Lovenox 80 subcu every 24 hours . We will check INRs daily. She could be discharged and take her Coumadin dose and Lovenox as an ou tpatient and do an INR in about 5 days. TR/FERNANDO Voice ID: [id number] Report ID: [id number]
[2018-02-06] MEDS: WARFARIN SODIUM 2.5 MG TAB PO SCH (17:06)
[2018-02-06] MEDS: WARFARIN SODIUM 1 MG TAB PO SCH (17:06)
[2018-02-06] MEDS: ATORVASTATIN 10 MG TAB PO SCH (21:20)
[2018-02-07] MEDS: NA CHLORIDE 0.9% 1,000 ML IV SCH ×3 (05:52→23:45)
[2018-02-07 06:26] LABS: Protime INR 1.1
[2018-02-07 06:27] LABS: Potassium 4.1 mmol/L (3.5-5.1)
[2018-02-07 06:41] LABS: Absolute Lymphocytes (CBC) 2.1 K/uL (0.7-4.9); Absolute Monocytes 0.7 K/uL (0.1-1.3); Absolute Neutrophil 6.6 K/uL (1.8-8.0); Basophils % 0.4 % (0-1.3); Eosinophils % 2.7 % (0-4.4); Hematocrit 23.1 % (36.0-45.0); Lymphocytes % 21.9 % (15.3-44.8); MCH 32.3 pg (27.0-35.0); MPV 7.8 fL (7.6-11.3); Monocytes % 7.2 % (3.3-12.3); RBC Red Blood Cell Count 2.43 M/uL (3.86-4.86)
[2018-02-07] MEDS: HUMALOG MIX 75/25 100 UNITS/ML SQ SCH ×2 (08:00→17:00)
--- NOTE | 2018-02-07 08:12 | RAD REPORT ---
EXAM DESCRIPTION: RAD - Ankle Right 2 View - 02/07/2018 8:02 am FINDINGS: Fluoroscopic assisted placement of fracture hardware performed. Fluoro time was 0.9 minute s. Cumulative dose 1.43 mGy. There were 14 spot images submitted. Images show stepwise placement of fracture fixation hardware. No suspicious or unexpected finding.
[2018-02-07] MEDS: ENOXAPARIN 80 MG/0.8 ML SQ SCH (09:00)
[2018-02-07] MEDS: AMLODIPINE 2.5 MG TAB PO SCH (09:23)
[2018-02-07] MEDS: LISINOPRIL 10 MG TAB PO SCH (09:23)
[2018-02-07] MEDS: CALCIUM CARB 500MG/VIT D 200 IU TAB PO SCH (09:25)
[2018-02-07] MEDS: MULTIVITAMINS,THERAPEUT 1 TAB PO SCH (09:25)
[2018-02-07] MEDS: METOPROLOL XL 25 MG TAB PO SCH (09:25)
[2018-02-07] MEDS: MORPHINE 2 MG/ML SYR IV PRN (09:27)
--- NOTE | 2018-02-07 11:23 | PN ---
Ms. Jon is doing well. She will continue to get Lovenox daily until her INR is above 2. She is unable to care for herself at home, not weightbearing yet, so I suspect Dr. Fairchild will probably try to arrange a rehab admission or [facility] admission. The patient needs to get daily INRs until i t is above 2, then we can stop the Lovenox. TR/FERNANDO Voice ID: [id number] Report ID: [id number]
--- NOTE | 2018-02-07 12:17 | P.PN ---
Subjective Date of Service: 02/07/18 Chief Complaint: R ankle fracture Subjective: Working w/ PT pain controlled Physical Examination - Vital Signs Temperature: 97.7 F Blood Pressure: 146/80 Pulse: 92 Respirations: 17 Pulse Ox (%): 98 - Physical Exam General: Alert, In no apparent distress Musculoskeletal: Other (RLE: dressing c/d/i; +EHL/FHL/bcr in all digits) Assessment And Plan - Plan Zoe is a 72 yo female with a trimalleolar ankle fracture s/p ORIF POD#2 -PT to mobilize today; NWB RLE -was admitted with anemia; now with expected blood loss anemia; continue to monitor h/h -on lovenox for DVT prophylaxis and full dose treatment with history of mitral valve replacement -SS for placement
[2018-02-07] MEDS ORDERED: NA CHLORIDE 0.9% 250 ML ONE (16:53)
[2018-02-07] MEDS: WARFARIN SODIUM 1 MG TAB PO SCH (17:16)
[2018-02-07] MEDS: WARFARIN SODIUM 2.5 MG TAB PO SCH (17:16)
--- NOTE | 2018-02-07 17:25 | PN ---
Subjective: The patient is feeling well. There are no new complaints. Objective: Vital Signs: Blood pressure 145/80, pulse 92, temperature 97.7. Heart: Regular rate and rhythm. Chest: Clear to auscultation. Abdomen: Soft, benign. Neurological: Intact. Extremities: No edema. No cyanosis. Laboratory Data: BUN 27, creatinine 1.6. Blood sugar fingersticks noted. PT 13, INR 1.1. Hemoglob in 7.8, hematocrit 23.1, platelets 231. Assessment And Plan: 1.Right ankle fracture status post operatively and clinically stable. 2.Postoperative anemia on top of anemia of chronic disease. Her hemoglobin is 7.8. We will type an d cross 1 unit of blood to improve the patient's general condition and help her with faster recovery, and we will monitor her CBC. 3.The patient with mitral valve replacement. She needs to be on warfarin. She will be restarted ba ck on 1 mg a day. We will monitor PT/INR and once she is above 2, we will stop the Lovenox and jovani nue her on warfarin only. 4.Chronic renal insufficiency with chronic disease, clinically stable. 5.We would like to ask Wildlife Removal Specialist consult for discharge planning whether to rehab floor or nurs ing home with physical therapy knowing that the patient as per Orthopedic recommendation cannot bear weight for about 6 weeks since the surgery and the patient lives alone. Look orders for details . MFS/MODL Voice ID: [id number] Report ID: [id number]
[2018-02-07] MEDS: ATORVASTATIN 10 MG TAB PO SCH (20:39)
[2018-02-08 01:51] LABS: Hematocrit 26.2 % (36.0-45.0)
[2018-02-08] MEDS: MORPHINE 2 MG/ML SYR IV PRN (06:07)
[2018-02-08] MEDS: NA CHLORIDE 0.9% 1,000 ML IV SCH ×2 (06:10→09:45)
[2018-02-08 06:11] LABS: Protime INR 1.23
[2018-02-08 06:12] LABS: Absolute Lymphocytes (CBC) 2.3 K/uL (0.7-4.9); Absolute Monocytes 0.9 K/uL (0.1-1.3); Absolute Neutrophil 7.3 K/uL (1.8-8.0); Basophils % 0.4 % (0-1.3); Eosinophils % 3.3 % (0-4.4); Hematocrit 28.8 % (36.0-45.0); Lymphocytes % 21.4 % (15.3-44.8); MCH 32.7 pg (27.0-35.0); MCV 94.5 fL (80-100); MPV 7.2 fL (7.6-11.3); Monocytes % 8.4 % (3.3-12.3); RBC Red Blood Cell Count 3.05 M/uL (3.86-4.86)
[2018-02-08 06:27] LABS: Potassium 3.8 mmol/L (3.5-5.1)
[2018-02-08] MEDS: HUMALOG MIX 75/25 100 UNITS/ML SQ SCH ×2 (08:00→17:00)
[2018-02-08] MEDS: CALCIUM CARB 500MG/VIT D 200 IU TAB PO SCH (10:19)
[2018-02-08] MEDS: FUROSEMIDE 20 MG TABLET PO SCH (10:19)
[2018-02-08] MEDS: LISINOPRIL 10 MG TAB PO SCH (10:20)
[2018-02-08] MEDS: METOPROLOL XL 25 MG TAB PO SCH (10:20)
[2018-02-08] MEDS: MULTIVITAMINS,THERAPEUT 1 TAB PO SCH (10:20)
[2018-02-08] MEDS: AMLODIPINE 2.5 MG TAB PO SCH (10:20)
[2018-02-08] MEDS: ENOXAPARIN 80 MG/0.8 ML SQ SCH (10:20)
--- NOTE | 2018-02-08 17:27 | PN ---
Subjective: The patient has no new complaints. Objective: Vital Signs: Blood pressure 130/50, pulse 80, temperature 97.4. Heart: Regular rate and rhythm. Chest: Clear to auscultation. Abdomen: Soft, benign. Neurological: Alert and oriented and grossly intact. Laboratory Data: Hemoglobin 10.0, hematocrit 28.8. PT 14.5, INR 1.23. Blood sugar fingersticks not ed. Assessment And Plan: 1.Pending mental health social worker for transfer to the rehab floor or facility with PT/OT. The patient canno t bear weight this time as per orthopedic. 2.We will increase warfarin dosage, daily dosage and monitor that. 3.patient problems clinically stable. Continue current treatment. Pending social service workup an d recommendation. ISABELLA/FERNANDO Voice ID: [id number] Report ID: [id number]
[2018-02-08] MEDS: WARFARIN SODIUM 1 MG TAB PO SCH (18:04)
[2018-02-08] MEDS: WARFARIN SODIUM 2.5 MG TAB PO SCH (18:04)
--- NOTE | 2018-02-08 18:54 | P.PN ---
Subjective Date of Service: 02/08/18 Chief Complaint: s/p ORIF right ankle Subjective: Working w/ PT pain controlled Physical Examination - Vital Signs Temperature: 97.9 F Blood Pressure: 140/63 Pulse: 79 Respirations: 18 Pulse Ox (%): 96 - Physical Exam General: Alert, In no apparent distress Musculoskeletal: Other (RLE: splint c/d/i; moves toes grossly; bcr in all digits ) Assessment And Plan - Plan Zoe is a 72 yo female with a trimalleolar ankle fracture s/p ORIF POD#3 -PT to mobilize; NWB RLE -H/H stabilized after 1 unit PRBC transfusion -on lovenox for DVT prophylaxis and full dose treatment with history of mitral valve replacement -SS for placement
[2018-02-08 19:30] LABS: Urine Appearance CLEAR; Urine Bilirubin NEGATIVE (NEG); Urine Blood NEGATIVE (NEG); Urine Color YELLOW; Urine Glucose NEGATIVE (NEG); Urine Protein 1+ (NEG); Urine Urobilinogen 0.2 mg/dL (0.2-1.0); Urine pH 5.5 (5.0-7.0)
[2018-02-08 19:53] LABS: Urine Culture Reflex Order NOT NEEDED
[2018-02-08 19:54] LABS: Urine Amorphous Sediment 2+ /HPF (NONE SEEN); Urine Bacteria <20 /HPF (<20)
[2018-02-08] MEDS: ATORVASTATIN 10 MG TAB PO SCH (20:10)
[2018-02-08] MEDS: HYDROCODONE/APAP 7.5/325 MG TAB PO PRN (20:10)
[2018-02-09 06:28] LABS: Protime INR 1.53
[2018-02-09] MEDS: HUMALOG MIX 75/25 100 UNITS/ML SQ SCH ×2 (08:00)
[2018-02-09] MEDS: CALCIUM CARB 500MG/VIT D 200 IU TAB PO SCH (08:46)
[2018-02-09] MEDS: ENOXAPARIN 80 MG/0.8 ML SQ SCH (08:46)
[2018-02-09] MEDS: MULTIVITAMINS,THERAPEUT 1 TAB PO SCH (08:47)
[2018-02-09] MEDS: AMLODIPINE 2.5 MG TAB PO SCH (08:47)
[2018-02-09] MEDS: METOPROLOL XL 25 MG TAB PO SCH (08:47)
[2018-02-09] MEDS: LISINOPRIL 10 MG TAB PO SCH (08:47)
[2018-02-09 08:49] VITALS: BP 162/74
[2018-02-09 09:00] VITALS: TEMP 98.5
[2018-02-09 11:15] VITALS: O2SAT 97
--- NOTE | 2018-02-09 12:19 | P.PN ---
Subjective Date of Service: 02/09/18 Chief Complaint: s/p ORIF right ankle pain controlled; powell placed yesterday secondary to urinary retention Physical Examination - Vital Signs Temperature: 98.5 F Blood Pressure: 162/74 Pulse: 79 Respirations: 18 Pulse Ox (%): 97 - Physical Exam General: Alert, In no apparent distress Musculoskeletal: Other (RLE: splint c/d/i; +EHL/FHL; bcr in all digits) Assessment And Plan - Plan Zoe is a 72 yo female with a trimalleolar ankle fracture s/p ORIF POD#4 -PT to mobilize; NWB RLE -on lovenox for DVT prophylaxis and full dose treatment with history of mitral valve replacement -SS for placement -f/u in my clinic in 1 week for suture removal and placement of CAM boot
[2018-02-09] MEDS: HYDROCODONE/APAP 7.5/325 MG TAB PO PRN (12:45)
== END 2018-02-09 16:31 | DRG 493 ==
LOC: ER 21:39 → ERHOLD 23:37 → 4TH 02-03 00:06
PROVIDERS: ADMIT Internal Medicine; ATTEND Internal Medicine
PROC: 2W3QX1Z Immobilization of Right Lower Leg using Splint (ICD-10-PCS; 2018-02-03)
PROC: 0QSG04Z Reposition Right Tibia with Internal Fixation Device, Open Approach (ICD-10-PCS; 2018-02-05)
PROC: 0QSG34Z Reposition Right Tibia with Internal Fixation Device, Percutaneous Approach (ICD-10-PCS; 2018-02-05)
PROC: 0QSJ04Z Reposition Right Fibula with Internal Fixation Device, Open Approach (ICD-10-PCS; principal; 2018-02-05 11:00)
PROC: 30233N1 Transfusion of Nonautologous Red Blood Cells into Peripheral Vein, Percutaneous Approach (ICD-10-PCS; 2018-02-07)
DX: S82.851A Displaced trimalleolar fracture of right lower leg, initial encounter for closed fracture (principal); N18.4 Chronic kidney disease, stage 4 (severe); D62 Acute posthemorrhagic anemia; I12.9 Hypertensive chronic kidney disease with stage 1 through stage 4 chronic kidney disease, or unspecified chronic kidney disease; E11.22 Type 2 diabetes mellitus with diabetic chronic kidney disease; E78.5 Hyperlipidemia, unspecified; H40.9 Unspecified glaucoma; D63.8 Anemia in other chronic diseases classified elsewhere; E66.9 Obesity, unspecified; V78.4XXA Person boarding or alighting from bus injured in noncollision transport accident, initial encounter; Z88.1 Allergy status to other antibiotic agents; Z79.01 Long term (current) use of anticoagulants; Z79.4 Long term (current) use of insulin; Z95.0 Presence of cardiac pacemaker; Z95.2 Presence of prosthetic heart valve; Z68.36 Body mass index [BMI] 36.0-36.9, adult
CPT/HCPCS: 36415; 71045; 73700; 80048; 80076; 81001; 81003; 81015; 82550; 82553; 82962; 83735; 83880; 84484; 85014; 85018; 85025; 85610; 85730; 86850; 86900; 86901; 87086; 87088; 93005; 93280; 93306; 93971; 96361; 96374; 96375; 97163; 99285; J1100; J1650; J2270; J2370; J2405; J3010; J3430; J7030; P9016

== ENCOUNTER 2018-05-14 20:56 | Emergency (ER) | payer OTHER ==
--- OUTSIDE RECORDS SUMMARY | 2018-05-14 20:59 | XMS REPORT ---
:1945 Author Organization e[employer]Works Care Team Providers Name Role Phone Westley Fairchild Provider Role Unavailable Allergies, Adverse Reactions, Alerts Substance Reaction Event Type Keflex Info Not Available Drug Allergy Problems Problem Type Condition Code Onset Dates Condition Status Assessment Closed displaced trimalleolar S82.851D Active fracture of right lower leg with routine healing Medications Medication Code Code Instructions Start End Status Dosage System Date Date Warfarin Sodium [facility] 35313603745 1 MG Oral Active not defined OneTouch Delica [facility] 12497483083 - Active not Lancets 33G defined Furosemide [facility] 23913063626 20 MG Oral Active not defined Senna S ND 31346758266 8.6-50 MG Orally Feb 23, Active 1 tablet Once a day 2018 in the evening as needed Metoprolol ND 65868421108 25 MG Oral Active not Succinate ER defined Tylenol # 3 NDC 0 300/30mg PO BID Feb 23, Active one tab PRN 2018 Dorzolamide HCl [facility] 70520095239 2 % Ophthalmic Active not defined Amlodipine ND 64846888644 2.5 MG Oral Active not Besylate defined Lisinopril ND 67597177229 30 MG Oral Active not defined Tylenol ND 23306389076 325 MG Orally Feb 23, Active 1 tablet every 4 hrs 2017 as needed Nephro-Vivi ND 41640430777 0.8 MG Orally Feb 23, Active 1 tablet Once a day 2018 Lumigan ND 73148150293 0.01 % Active not Ophthalmic defined Simvastatin ND 46048040640 10 MG Oral Active not defined NovoLog Mix [facility] 30602279385 (70-30) 100 Active not 70/30 UNIT/ML defined Subcutaneous Results No Known Results Summary Purpose eClinicalWorks Submission
--- OUTSIDE RECORDS SUMMARY | 2018-05-14 20:59 | XMS REPORT ---
:1945 Author Organization e[employer] Care Team Providers Name Role Phone Westley Fairchild Provider Role Unavailable Allergies, Adverse Reactions, Alerts Substance Reaction Event Type Keflex Info Not Available Drug Allergy Problems Problem Type Condition Code Onset Dates Condition Status Assessment Closed displaced trimalleolar S82.851D Active fracture of right lower leg with routine healing Assessment Acute right ankle pain M25.571 Active Medications Medication Code Code Instructions Start End Status Dosage System Date Date Tylenol # 3 NDC 0 300/30mg PO BID Feb 23, Active one tab PRN 2017 OneTouch Delica [facility] [id number] - Active not Lancets 33G defined Metoprolol [facility] 54238213643 25 MG Oral Active not Succinate ER defined Dorzolamide HCl [facility] 76862944687 2 % Ophthalmic Active not defined NovoLog Mix [facility] 26051192218 (70-30) 100 Active not 70/30 UNIT/ML defined Subcutaneous Furosemide [facility] 00682773236 20 MG Oral Active not defined Lisinopril [facility] 11799906670 30 MG Oral Active not defined Senna S [facility] 52345077374 8.6-50 MG Orally Feb 23, Active 1 tablet Once a day 2018 in the evening as needed Nephro-Vivi ND 70723543922 0.8 MG Orally Feb 23, Active 1 tablet Once a day 2018 Warfarin Sodium [facility] 24308231939 1 MG Oral Active not defined Amlodipine [facility] 40413941647 2.5 MG Oral Active not Besylate defined Lumigan [facility] 80591271138 0.01 % Active not Ophthalmic defined Simvastatin [facility] 44013090307 10 MG Oral Active not defined Tylenol ND 05184405334 325 MG Orally Feb 23, Active 1 tablet every 4 hrs 2018 as needed Results No Known Results Summary Purpose eClinicalWorks Submission
[2018-05-14] MEDS ORDERED: FENTANYL CITR 100 MCG/2 ML ONE (22:20)
[2018-05-14] MEDS ORDERED: ONDANSETRON 4 MG/2 ML VIAL ONE (22:21)
[2018-05-14 22:22] LABS: Protime INR 2.29
--- NOTE | 2018-05-14 22:42 | ER ---
Nurse's Notes [facility] Name: Zoe Jon Age: 72 yrs Sex: Female : 1945 Arrival Date: 05/14/2018 Time: 20:57 Bed 19 Private MD: Diagnosis: Displaced supracondylar fracture with intracondylar extension of lower end of left femur;Obesity, unspecified;Type 2 diabetes mellitus;Unspecified kidney failure Presentation: 05/14 20:57 Presenting complaint: Patient states: She was walking around her apartment at home when aj1 she tripped on her shoe laces and fell, hitting her face on the dresser on the way down. Abrasion noted to left cheek. Redness noted to bilateral eye lids. Patient denies LOC, vomiting. Patient reports pain to left knee and left thigh, patient is unable to bear weight on left leg. ROM limited in right knee. 20:57 Care prior to arrival: None. Mechanism of Injury: Fall from standing position. Trauma aj1 event details: Injury occurred in the [facility]. 20:57 Acuity: TRISTAN 2 aj1 20:57 Method Of Arrival: EMS: [facility] aj1 20:57 Transition of care: patient was not received from another setting of care. Onset of aj1 symptoms was May 14, 2018. 20:57 Risk Assessment: Do you want to hurt yourself or someone else? Patient reports no aj1 desire to harm self or others. Initial Sepsis Screen: Does the patient meet any 2 criteria? No. Patient's initial sepsis screen is negative. Does the patient have a suspected source of infection? No. Patient's initial sepsis screen is negative. Trauma Activation: Alert Physician: ED Physician; Name: Elvin; Notified At: 20:57; Arrived At: 20:57 Physician: General Surgeon; Name: ; Notified At: 20:57; Arrived At: Physician: Radiology; Name: ; Notified At: 20:57; Arrived At: Physician: Respiratory; Name: ; Notified At: 20:57; Arrived At: Physician: Lab; Name: ; Notified At: 20:57; Arrived At: Trauma Activation: Alert Physician: ED Physician; Name: elvin; Notified At: 20:54; Arrived At: 20:54 Physician: General Surgeon; Name: ; Notified At: 20:54; Arrived At: Physician: Radiology; Name: raúl; Notified At: 20:54; Arrived At: 20:59 Physician: Respiratory; Name: nasima; Notified At: 20:54; Arrived At: 20:59 Physician: Lab; Name: ; Notified At: 20:54; Arrived At: Historical: - Allergies: 21:47 Cephalexin Monohydrate; aj1 - Home Meds: 21:47 calcium carbonate 600 mg (1,500 mg) Oral tab daily [Active]; Neha-Vivi 0.8 mg Oral tab aj1 daily [Active]; metoprolol tartrate 25 mg Oral tab 1 tab once daily [Active]; furosemide 20 mg Oral tab Every other day [Active]; simvastatin 10 mg Oral tab 1 tab nightly [Active]; lisinopril 30 mg Oral tab 1 tab once daily [Active]; amlodipine 2.5 mg tab 1 tab once daily [Active]; Combigan 0.2-0.5 % ophthalmic drop 1 drop every 12 hours [Active]; Lumigan 0.01 % ophthalmic drop nightly [Active]; dorzolamide 2 % ophthalmic drop 1 drop 3 times per day [Active]; Warfarin 3.25 mg Oral once daily [Active]; Novolin 70/30 [place] Sub-Q 20 units in morning and 15 un its every evening [Active]; - PMHx: 21:47 CKD; Diabetes - NIDDM; Glaucoma; High Cholesterol; Hypertension; Pacemaker; aj1 - Immunization history:: Flu vaccine is up to date. - Social history:: Smoking status: Patient/guardian denies using tobacco. - Immunization history: Last tetanus immunization: unknown. - Ebola Screening: : Patient denies travel to an Ebola-affected area in the 21 days before illness onset. - Family history:: not pertinent. Screenin:57 Abuse screen: Denies threats or abuse. Denies injuries from another. Tuberculosis aj1 screening: No symptoms or risk factors identified. 21:00 Nutritional screening: No deficits noted. Fall Risk Ambulatory Aid- cc3 Crutches/Cane/Walker (15 pts). Gait- Impaired (20 pts.). Mental Status- Oriented to own ability (0 pts). Primary Survey: 20:57 A: Airway: patent. Breathing/Chest: Respiratory pattern: regular, Respiratory effort: aj1 spontaneous, unlabored, Chest inspection: symmetrical rise and fall of the chest. Circulation: Pulses: palpable left dorsalis pedis artery. Skin color: pink. Disability Alert. 21:00 Reassessment Airway Airway Patent Oxygen No O2 Oral cavity Clear +Gag reflex Trachea cc3 Midline Breathing/Chest Respiratory pattern Regular Respiratory effort Spontaneous Unlabored Breath sounds Clear Chest inspection Symmetrical Circulation Heart rhythm Paced Disability Alert. Secondary Survey: 20:57 HEENT: Face Other abrasion noted to left cheek Eyes: Other Redness noted to bilateral aj1 eye lids Ears: clear Nose: clear Throat: No injury or deformity noted. Gastrointestinal: No deficits noted. : No deficits noted. No signs and/or symptoms were reported regarding the genitourinary system. Musculoskeletal: Capillary refill < 3 seconds, in bilateral toes. Range of motion: limited in left knee and right ankle. Assessment: 20:57 General: Appears in no apparent distress. uncomfortable, Behavior is calm, cooperative, aj1 appropriate for age. Pain: Complains of pain in left quadriceps and left knee Pain does not radiate. Pain currently is 10 out of 10 on a pain scale. Neuro: Level of Consciousness is awake, alert, obeys commands. EENT: Lid(s) redness noted to bilateral eye lids. Cardiovascular: Patient's skin is warm and dry. Respiratory: Airway is patent Respiratory effort is even, unlabored, Respiratory pattern is regular, symmetrical. GI: No signs and/or symptoms were reported involving the gastrointestinal system. : No signs and/or symptoms were reported regarding the genitourinary system. Derm: Skin is pink, warm \T\ dry. Musculoskeletal: Capillary refill < 3 seconds, in bilateral toes. Range of motion: limited in left knee and right ankle Walking boot in place to right foot. Patient states that she had a previous fall and broke her foot in 4 place. Injury Description: Abrasion sustained to left cheek. 22:35 Reassessment: Patient appears in no apparent distress at this time. Patient and/or cc3 family updated on plan of care and expected duration. Pain level reassessed. Patient is alert, oriented x 3, equal unlabored respirations, skin warm/dry/pink. Patient came back from xray department. 22:40 Reassessment: Patient for transfer as ordered, transfer on process. cc3 23:34 Reassessment: Patient appears in no apparent distress at this time. Patient and/or cc3 family updated on plan of care and expected duration. Pain level reassessed. Patient is alert, oriented x 3, equal unlabored respirations, skin warm/dry/pink. Patient for transfer to [facility] for higher level of care, report handed over to Julia Solorio. 05/15 00:05 Reassessment: Patient appears in no apparent distress at this time. Patient and/or cc3 family updated on plan of care and expected duration. Pain level reassessed. Patient is alert, oriented x 3, equal unlabored respirations, skin warm/dry/pink. [facility] came and fetched the patient for transfer to [facility] in vitally stable condition. Vital Signs: 05/14 20:57 BP 113 / 58; Pulse 81; Resp 18; Temp 97.6; Pulse Ox 100% on R/A; Weight 81.65 kg; aj1 Height 5 ft. 2 in. (157.48 cm); Pain 10/10; 21:30 BP 119 / 48; Pulse 80; Resp 18 S; Pulse Ox 100% on R/A; cc3 22:20 BP 117 / 63; Pulse 82; Resp 19 S; Pulse Ox 100% on R/A; cc3 23:45 BP 115 / 54; Pulse 81; Resp 17 S; Pulse Ox 99% on R/A; cc3 20:57 Body Mass Index 32.92 (81.65 kg, 157.48 cm) aj1 [place] Coma Score: 20:57 Eye Response: spontaneous(4). Verbal Response: oriented(5). Motor Response: obeys aj1 commands(6). Total: 15. Trauma Score (Adult): 20:57 Eye Response: spontaneous(1); Verbal Response: oriented(1); Motor Response: obeys aj1 commands(2); Systolic BP: > 89 mm Hg(4); Respiratory Rate: 10 to 29 per min(4); [place] Score: 15; Trauma Score: 12 ED Course: 20:57 Patient arrived in ED. al2 20:57 Patient has correct armband on for positive identification. Bed in low position. Call aj1 light in reach. Side rails up X2. 20:57 Patient maintains SpO2 saturation greater than 95% on room air. aj1 21:00 Thermoregulation: warm blanket given to patient. cc3 21:10 Ester Long is Primary Nurse. cc3 21:20 Inserted saline lock: 20 gauge in right wrist, using aseptic technique. Blood collected.cc3 21:31 Feliberto Oconnor MD is Attending Physician. [facility] 21:40 Triage completed. aj1 21:47 Arm band placed on Patient placed in an exam room. aj1 22:35 XRAY Chest (1 view) In Process Unspecified. EDMS 22:35 Femur Left XRAY In Process Unspecified. EDMS 05/15 00:05 No provider procedures requiring assistance completed. Patient transferred, IV remains cc3 in place. Administered Medications: 05/14 22:40 Drug: fentaNYL (PF) 25 mcg Route: IVP; Site: right wrist; cc3 23:00 Follow up: Response: No adverse reaction; Pain is decreased cc3 22:42 Drug: Zofran 4 mg Route: IVP; Site: right wrist; cc3 23:00 Follow up: Response: No adverse reaction; Nausea is decreased cc3 23:30 Drug: fentaNYL (PF) 25 mcg Route: IVP; Site: right wrist; cc3 05/15 00:00 Follow up: Response: No adverse reaction; Pain is decreased cc3 Intake: 00:00 IV: 30ml; Total: 30ml. cc3 Outcome: 05/14 22:40 ER care complete, transfer ordered by . [facility] 05/15 00:00 patient for transfer to other facilityPatient's length of stay extended due to cc3 00:05 Transferred by ground EMS to [facility], Transfer form completed. cc3 00:05 Condition: stable 00:05 Instructed on the need for transfer, Demonstrated understanding of instructions. 00:16 Patient left the ED. cc3 Signatures: Dispatcher [employer] EDRosie Llanes RN RN [email or web address] Feliberto Oconnor MD MD cha Krenek, Amber RN RN Lolis Shelby al2 Ester Long cc3
--- NOTE | 2018-05-14 22:42 | EDPHYS ---
Physician Documentation [facility] Name: Zoe Jon Age: 72 yrs Sex: Female : 1945 Arrival Date: 05/14/2018 Time: 20:57 Bed 19 Private MD: ED Physician Feliberto Oconnor HPI: 05/14 21:55 This 72 yrs old Female presents to ER via EMS with complaints of Fall Injury. dixie 21:55 Details of fall: The patient fell from an upright position. Onset: The symptoms/episode dixie began/occurred just prior to arrival. Associated injuries: The patient sustained lateral aspect of left thigh, medial aspect of left thigh and left quadriceps, decreased range of motion, hematoma, painful injury, swelling. Severity of symptoms: At their worst the symptoms were moderate, in the emergency department the symptoms are unchanged. The patient has not experienced similar symptoms in the past. Historical: - Allergies: 21:47 Cephalexin Monohydrate; aj1 - Home Meds: 21:47 calcium carbonate 600 mg (1,500 mg) Oral tab daily [Active]; Neha-Vivi 0.8 mg Oral tab aj1 daily [Active]; metoprolol tartrate 25 mg Oral tab 1 tab once daily [Active]; furosemide 20 mg Oral tab Every other day [Active]; simvastatin 10 mg Oral tab 1 tab nightly [Active]; lisinopril 30 mg Oral tab 1 tab once daily [Active]; amlodipine 2.5 mg tab 1 tab once daily [Active]; Combigan 0.2-0.5 % ophthalmic drop 1 drop every 12 hours [Active]; Lumigan 0.01 % ophthalmic drop nightly [Active]; dorzolamide 2 % ophthalmic drop 1 drop 3 times per day [Active]; Warfarin 3.25 mg Oral once daily [Active]; Novolin 70/30 [place] Sub-Q 20 units in morning and 15 un its every evening [Active]; - PMHx: 21:47 CKD; Diabetes - NIDDM; Glaucoma; High Cholesterol; Hypertension; Pacemaker; aj1 - Immunization history:: Flu vaccine is up to date. - Social history:: Smoking status: Patient/guardian denies using tobacco. - Immunization history: Last tetanus immunization: unknown. - Ebola Screening: : Patient denies travel to an Ebola-affected area in the 21 days before illness onset. - Family history:: not pertinent. ROS: 21:55 Constitutional: Negative for fever, chills, and weight loss, Eyes: Negative for injury, dixie pain, redness, and discharge, ENT: Negative for injury, pain, and discharge, Neck: Negative for injury, pain, and swelling, Cardiovascular: Negative for chest pain, palpitations, and edema, Respiratory: Negative for shortness of breath, cough, wheezing, and pleuritic chest pain, Abdomen/GI: Negative for abdominal pain, nausea, vomiting, diarrhea, and constipation, Back: Negative for injury and pain, : Negative for injury, bleeding, discharge, and swelling, Skin: Negative for injury, rash, and discoloration, Neuro: Negative for headache, weakness, numbness, tingling, and seizure, Psych: Negative for depression, anxiety, suicide ideation, homicidal ideation, and hallucinations, Allergy/Immunology: Negative for hives, rash, and allergies, Endocrine: Negative for neck swelling, polydipsia, polyuria, polyphagia, and marked weight changes, Hematologic/Lymphatic: Negative for swollen nodes, abnormal bleeding, and unusual bruising. 21:55 MS/extremity: Positive for pain, swelling, tenderness, of the left leg. Exam: 21:55 Constitutional: This is a well developed, well nourished patient who is awake, alert, dixie and in no acute distress. Head/Face: Normocephalic, atraumatic. Eyes: Pupils equal round and reactive to light, extra-ocular motions intact. Lids and lashes normal. Conjunctiva and sclera are non-icteric and not injected. Cornea within normal limits. Periorbital areas with no swelling, redness, or edema. ENT: Nares patent. No nasal discharge, no septal abnormalities noted. Tympanic membranes are normal and external auditory canals are clear. Oropharynx with no redness, swelling, or masses, exudates, or evidence of obstruction, uvula midline. Mucous membranes moist. Neck: Trachea midline, no thyromegaly or masses palpated, and no cervical lymphadenopathy. Supple, full range of motion without nuchal rigidity, or vertebral point tenderness. No Meningismus. Chest/axilla: Normal chest wall appearance and motion. Nontender with no deformity. No lesions are appreciated. Cardiovascular: Regular rate and rhythm with a normal S1 and S2. No gallops, murmurs, or rubs. Normal PMI, no JVD. No pulse deficits. Respiratory: Lungs have equal breath sounds bilaterally, clear to auscultation and percussion. No rales, rhonchi or wheezes noted. No increased work of breathing, no retractions or nasal flaring. Abdomen/GI: Soft, non-tender, with normal bowel sounds. No distension or tympany. No guarding or rebound. No evidence of tenderness throughout. Back: No spinal tenderness. No costovertebral tenderness. Full range of motion. Skin: Warm, dry with normal turgor. Normal color with no rashes, no lesions, and no evidence of cellulitis. Neuro: Awake and alert, GCS 15, oriented to person, place, time, and situation. Cranial nerves II-XII grossly intact. Motor strength 5/5 in all extremities. Sensory grossly intact. Cerebellar exam normal. Normal gait. Psych: Awake, alert, with orientation to person, place and time. Behavior, mood, and affect are within normal limits. 21:55 Musculoskeletal/extremity: ROM: limited active range of motion due to pain, limited passive range of motion due to pain, Circulation is intact in all extremities. Sensation intact. Compartment Syndrome exam of affected extremity: is normal. DVT Exam: negative Homans' sign noted on exam, no appreciated bluish discoloration, no erythema, no increased warmth, pain, swelling, tenderness. Vital Signs: 20:57 BP 113 / 58; Pulse 81; Resp 18; Temp 97.6; Pulse Ox 100% on R/A; Weight 81.65 kg; aj1 Height 5 ft. 2 in. (157.48 cm); Pain 10/10; 21:30 BP 119 / 48; Pulse 80; Resp 18 S; Pulse Ox 100% on R/A; cc3 22:20 BP 117 / 63; Pulse 82; Resp 19 S; Pulse Ox 100% on R/A; cc3 23:45 BP 115 / 54; Pulse 81; Resp 17 S; Pulse Ox 99% on R/A; cc3 20:57 Body Mass Index 32.92 (81.65 kg, 157.48 cm) aj1 Grant Coma Score: 20:57 Eye Response: spontaneous(4). Verbal Response: oriented(5). Motor Response: obeys aj1 commands(6). Total: 15. Trauma Score (Adult): 20:57 Eye Response: spontaneous(1); Verbal Response: oriented(1); Motor Response: obeys aj1 commands(2); Systolic BP: > 89 mm Hg(4); Respiratory Rate: 10 to 29 per min(4); Jessica Score: 15; Trauma Score: 12 MDM: 21:31 Patient medically screened. [facility] 22:01 Data reviewed: vital signs, nurses notes, lab test result(s), EKG, radiologic studies, [facility] plain films. 05/14 21:34 Order name: Creatinine for Radiology [facility] 05/14 21:34 Order name: Type And Screen [facility] 05/14 21:34 Order name: LFT's [facility] 05/14 21:34 Order name: Magnesium; Complete Time: 22:47 [facility] 05/14 21:34 Order name: NT PRO-BNP; Complete Time: 22:47 [facility] 05/14 21:34 Order name: PT-INR; Complete Time: 22:47 [facility] 05/14 21:34 Order name: Troponin (emerg Dept Use Only); Complete Time: 22:47 [facility] 05/14 21:34 Order name: XRAY Chest (1 view) [facility] 05/14 21:35 Order name: Creatinine (Radiology Only); Complete Time: 22:47 [facility] 05/14 21:35 Order name: Type and Screen [facility] 05/14 21:35 Order name: Liver (Hepatic) Function; Complete Time: 22:47 [facility] 05/14 21:50 Order name: Femur Left XRAY [facility] 05/14 22:24 Order name: Basic Metabolic Panel; Complete Time: 22:47 [facility] 05/14 21:34 Order name: EKG; Complete Time: 21:35 [facility] 05/14 21:34 Order name: Cardiac monitoring; Complete Time: 21:41 [facility] 05/14 21:34 Order name: EKG - Nurse/Tech; Complete Time: 22:48 [facility] 05/14 21:34 Order name: IV Saline Lock; Complete Time: 22:48 [facility] 05/14 21:34 Order name: O2 Per Protocol; Complete Time: 21:41 [facility] 05/14 21:34 Order name: O2 Sat Monitoring; Complete Time: 21:41 [facility] Administered Medications: 22:40 Drug: fentaNYL (PF) 25 mcg Route: IVP; Site: right wrist; cc3 23:00 Follow up: Response: No adverse reaction; Pain is decreased cc3 22:42 Drug: Zofran 4 mg Route: IVP; Site: right wrist; cc3 23:00 Follow up: Response: No adverse reaction; Nausea is decreased cc3 23:30 Drug: fentaNYL (PF) 25 mcg Route: IVP; Site: right wrist; cc3 05/15 00:00 Follow up: Response: No adverse reaction; Pain is decreased cc3 Disposition: 05/14/18 22:40 Transfer ordered to [facility]. Diagnosis are Displaced supracondylar fracture with intracondylar extension of lower end of left femur, Obesity, unspecified, Type 2 diabetes mellitus, Unspecified kidney failure. - Reason for transfer: Higher level of care. - Accepting physician is to [facility]. - Condition is Fair. - Problem is new. - Symptoms have improved. Signatures: Dispatcher [employer] EDRosie Llanes RN RN ajFeliberto Hogan MD MD cha Cordel, Charlene cc3 Corrections: (The following items were deleted from the chart) 05/14 22:51 22:40 05/14/2018 22:40 Transfer ordered to [facility]. [facility] Diagnosis is Displaced supracondylar fracture with intracondylar extension of lower end of left femur; Obesity, unspecified; Type 2 diabetes mellitus. Reason for transfer: Higher level of care. Accepting physician is to [facility]. Condition is Fair. Problem is new. Symptoms have improved. [facility] 05/15 00:16 05/14 22:51 05/14/2018 22:40 Transfer ordered to [facility]. cc3 Diagnosis is Displaced supracondylar fracture with intracondylar extension of lower end of left femur; Obesity, unspecified; Type 2 diabetes mellitus; Unspecified kidney failure. Reason for transfer: Higher level of care. Accepting physician is to [facility]. Condition is Fair. Problem is new. Symptoms have improved. dixie
[2018-05-14 22:43] LABS: ALT/SGPT 12 U/L (12-78); AST/SGOT 22 U/L (15-37); Albumin 3.6 g/dL (3.4-5.0); Alkaline Phosphatase 109 U/L (45-117); BUN Blood Urea Nitrogen 35 mg/dL (7-18); Bicarbonate 23 mmol/L (21-32); Bilirubin Direct 0.2 mg/dL (0-0.2); Bilirubin Total 0.4 mg/dL (0.2-1.0); Glucose Level 277 mg/dL (74-106); Magnesium 1.9 mg/dL (1.8-2.4); NT PRO-BNP 5969 pg/mL (<125); Potassium 4.2 mmol/L (3.5-5.1); Protein, Total 6.8 g/dL (6.4-8.2); Sodium Level 140 mmol/L (136-145); Troponin (Emerg Dept Use Only) < 0.02 ng/mL (0.0-0.045)
[2018-05-15 01:09] VITALS: TEMP 97.6; O2SAT 100
[2018-05-15 01:10] VITALS: BP 119/48
--- NOTE | 2018-05-15 11:19 | RAD REPORT ---
EXAM DESCRIPTION: RAD - Chest Single View - 05/14/2018 10:35 pm CLINICAL HISTORY: fall Chest pain. COMPARISON: Chest Single View dated 02/03/2018; CHEST SINGLE VIEW dated 12/08/2013; CHEST SINGLE VIEW d ated 12/08/2013; CHEST SINGLE VIEW dated 12/07/2013 FINDINGS: Portable technique limits examination quality. The lungs are grossly clear. The heart is upper limit normal size with dual lead pacer noted. Aortic valve replacement suspected. No displaced fractures.Sternotomy wires seen. IMPRESSION: No acute intrathoracic process suspected.
--- NOTE | 2018-05-15 11:20 | RAD REPORT ---
EXAM DESCRIPTION: RAD - Femur Left - 05/14/2018 10:35 pm CLINICAL HISTORY: Pain;Swelling History of fall COMPARISON: No comparisons FINDINGS: Impacted, mildly comminuted intra-articular fracture of the distal femur is seen. Dislocat ion is not evident. Vascular calcifications seen.
--- NOTE | 2018-05-16 05:52 | EKG ---
Test Date: 2018-05-14 Test Time: 22:45:19 Applications Trainer: ELSY MEASUREMENT RESULTS: Intervals: Rate: 80 NH: 142 QRSD: 172 QT: 496 QTc: 572 [place]: P: NH: 142 QRS: -86 T: 78 INTERPRETIVE STATEMENTS: AV sequential or dual chamber electronic pacemaker Compared to ECG 02/03/2018 00:15:32 Ventricular-paced complex(es) or rhythm no longer present Electronically Signed On 05-16-18 05:51:41 [employer]OCK UP BUILDER by Javier Streeter
== END 2018-05-15 00:16 | disposition short-term general hospital (02) ==
LOC: ER 20:56
DX: S72.462A Displaced supracondylar fracture with intracondylar extension of lower end of left femur, initial encounter for closed fracture (principal); W19.XXXA Unspecified fall, initial encounter; E11.22 Type 2 diabetes mellitus with diabetic chronic kidney disease; I12.9 Hypertensive chronic kidney disease with stage 1 through stage 4 chronic kidney disease, or unspecified chronic kidney disease; N18.9 Chronic kidney disease, unspecified; E66.9 Obesity, unspecified; Z68.32 Body mass index [BMI] 32.0-32.9, adult; E78.00 Pure hypercholesterolemia, unspecified; Z79.4 Long term (current) use of insulin; Z79.01 Long term (current) use of anticoagulants; Z79.899 Other long term (current) drug therapy; Z95.0 Presence of cardiac pacemaker
CPT/HCPCS: 36415; 71045; 73552; 80048; 80076; 83735; 83880; 84484; 85610; 86850; 86900; 86901; 93005; 96374; 96375; 99285; J2405; J3010

== ENCOUNTER 2019-06-03 14:06 | Emergency (ER) | payer OTHER ==
[~2019-06-03 14:06] MED LIST: ETOMIDATE 20 MG/10 ML VIAL IV ONE; SUCCINYLCHOLINE 20 MG/ML (10 ML) IV ONE
[2019-06-03] MEDS ORDERED: MIDAZOLAM HCL 2 MG/2 ML INJ ONE (14:08)
[2019-06-03] MEDS ORDERED: RSI MEDICATION KIT IV ONE (14:09)
[2019-06-03] MEDS ORDERED: ROCURONIUM 50 MG/5 ML VIAL IV ONE (14:09)
--- OUTSIDE RECORDS SUMMARY | 2019-06-03 14:09 | XMS REPORT ---
[...] Status Dosage System Date Date Warfarin Sodium [facility] 14656614771 1 MG Oral Active not defined OneTouch Delica [facility] 01081764354 - Active not Lancets 33G defined Furosemide [facility] 35208625057 20 MG Oral Active not defined Senna S ND 81729947344 8.6-50 MG Orally Feb 23, Active 1 tablet Once a day 2018 in the evening as needed Metoprolol ND 02559292500 25 MG Oral Active not Succinate ER defined Tylenol # 3 NDC 0 300/30mg PO BID Feb 23, Active one tab PRN 2018 Dorzolamide HCl [facility] 88134788631 2 % Ophthalmic Active not defined Amlodipine ND 20685756250 2.5 MG Oral Active not Besylate defined Lisinopril ND 44913969455 30 MG Oral Active not defined Tylenol ND 54842246470 325 MG Orally Feb 23, Active 1 tablet every 4 hrs 2017 as needed Nephro-Vivi ND 15516373167 0.8 MG Orally Feb 23, Active 1 tablet Once a day 2018 Lumigan ND 61438231083 0.01 % Active not Ophthalmic defined Simvastatin ND 78300224724 10 MG Oral Active not defined NovoLog Mix [facility] 73759924449 (70-30) 100 Active not 70/30 UNIT/ML defined Subcutaneous Results No Known Results Summary Purpose eClinicalWorks Submission
--- OUTSIDE RECORDS SUMMARY | 2019-06-03 14:09 | XMS REPORT ---
:1945 Author Organization eClinicalWorks Care Team Providers Name Role Phone Westley Fairchild Provider Role Unavailable Allergies, Adverse Reactions, Alerts Substance Reaction Event Type Keflex Info Not Available Drug Allergy Problems Problem Type Condition Code Onset Dates Condition Status Assessment Pain, joint, ankle, right M25.571 Active Assessment Closed displaced trimalleolar S82.851D Active fracture of right lower leg with routine healing Medications Medication Code Code Instructions Start End Status Dosage System Date Date Senjason S [facility] 94784882289 8.6-50 MG Feb 23, Active 1 tablet Orally Once a 2018 in the day evening as needed Tylenol [facility] 43352489334 325 MG Orally Feb 23, Active 1 tablet every 4 hrs 2017 as needed Metoprolol [facility] 39604390844 25 MG Oral Active not Succinate ER defined Lisinopril [facility] 40704707121 30 MG Oral Active not defined Furosemide [facility] 55420700554 20 MG Oral Active not defined Simvastatin [facility] 76653433898 10 MG Oral Active not defined Nephro-Vivi [facility] 31267280834 0.8 MG Orally Feb 23, Active 1 tablet Once a day 2018 Tylenol # 3 ND 0 300/30mg PO BID Feb 23, Active one tab PRN 2017 Warfarin Sodium [facility] 61448952438 1 MG Oral Active not defined Tamsulosin HCl [facility] [address]-96 Active not defined Amlodipine [facility] 28901129524 2.5 MG Oral Active not Besylate defined OneTouch Delica [facility] 33828375662 - Active not Lancets 33G defined Dorzolamide HCl [facility] 96186246376 2 % Ophthalmic Active not defined Lumigan [facility] 02559083126 0.01 % Active not Ophthalmic defined NovoLog Mix [facility] 57964703204 (70-30) 100 Active not 70/30 UNIT/ML defined Subcutaneous Results No Known Results Summary Purpose eClinicalWorks Submission
--- OUTSIDE RECORDS SUMMARY | 2019-06-03 14:09 | XMS REPORT ---
[...] Active one tab PRN 2017 OneTouch Delica [facility] 88037755705 - Active not Lancets 33G defined Metoprolol [facility] 21572309160 25 MG Oral Active not Succinate ER defined Dorzolamide HCl [facility] 44132029430 2 % Ophthalmic Active not defined NovoLog Mix [facility] 44665045802 (70-30) 100 Active not 70/30 UNIT/ML defined Subcutaneous Furosemide [facility] 71473446165 20 MG Oral Active not defined Lisinopril [facility] 37614646251 30 MG Oral Active not defined Senna S [facility] 32884612942 8.6-50 MG Orally Feb 23, Active 1 tablet Once a day 2018 in the evening as needed Nephro-Vivi ND 20107375519 0.8 MG Orally Feb 23, Active 1 tablet Once a day 2018 Warfarin Sodium [facility] 77459928878 1 MG Oral Active not defined Amlodipine [facility] 44599348083 2.5 MG Oral Active not Besylate defined Lumigan [facility] 40721391435 0.01 % Active not Ophthalmic defined Simvastatin [facility] 23816557804 10 MG Oral Active not defined Tylenol ND 30934371712 325 MG Orally Feb 23, Active 1 tablet every 4 hrs 2018 as needed Results No Known Results Summary Purpose eClinicalWorks Submission
--- OUTSIDE RECORDS SUMMARY | 2019-06-03 14:10 | XMS REPORT | Summary of Care ---
:1945 Author Name Berta Herndon Address [facility] Unavailable , Care Team Providers Name Role Phone LUZ OCONNELL M.D. Unavailable Unavailable FAITH REAL, CRISTEL SIEGEL Unavailable Unavailable Luz Oconnell MD Unavailable Unavailable Unavailable Unavailable Unavailable Functional Status Name Dates Details Functional status health issues are not documented Status: Name Dates Details Cognitive status health issues are not documented Status: Problems Name Dates Details Fracture of femur, distal (821.20, S72.409A) Status: Active Closed displaced supracondylar fracture of distal end of left femur with intracondylar extension with routine healing (V54.15, S72.462D) Status: Active Medications Name Dates Details Medications not documented Allergies and Adverse Reactions Name Dates Details Allergy history not documented Status: Procedures Procedure Dates Details [U] XRAY FEMUR 2 VWS LEFT [id number] Date: 07-Oct-2018 Immunization Name Dates Details Immunizations not documented Social History Name Dates Details Unknown if ever smoked Vital Signs Date Test Result Details No Known Vitals to report Results Date Description Value Details Results not documented Plan of Care Name Dates Details Planned Observations Planned Goals not documented Planned Encounters Appointment; LUZ OCONNELL M.D. On: 12-Oct-2018 11:00 Interventions Provided Labs/Procedures/Imaging[U] XRAY FEMUR 2 VWS LEFT [id number]; To Be Done: 12 Oct 2018 Instructions Name Dates Details Instructions not documented Encounters Appointment; LINA ALCARAZ P.A. On: 08-Jun-2018 13:15 Encounter Diagnosis: Problem not documented Appointment; LUZ OCONNELL M.D. On: 06-Jul-2018 14:00 Encounter Diagnosis: Problem not documented Appointment; LUZ OCONNELL M.D. On: 17-Aug-2018 13:45 Encounter Diagnosis: Problem not documented Appointment; LUZ OCONNELL M.D. On: 12-Oct-2018 11:00 Encounter Diagnosis: Problem not documented
[2019-06-03] MEDS ORDERED: NA CHLORIDE 0.9% 1,000 ML ONE (14:13)
[2019-06-03] MEDS ORDERED: PROPOFOL 1,000 MG/100 ML VIAL IV ONE (14:24)
[2019-06-03 14:37] LABS: Absolute Lymphocytes (CBC) 6.2 K/uL (0.7-4.9); Basophils % 0.5 % (0-1.3); Hematocrit 34.1 % (36.0-45.0); Lymphocytes % 41.5 % (15.3-44.8); MPV 7.7 fL (7.6-11.3); RBC Red Blood Cell Count 3.52 M/uL (3.86-4.86)
[2019-06-03 14:42] LABS: Protime INR 1.35
[2019-06-03] MEDS ORDERED: Nicardipine/NS 25 MG/250 ML KIT IV ONE (14:48)
--- NOTE | 2019-06-03 14:48 | RAD REPORT ---
EXAM DESCRIPTION: CT - Head Brain Wo Cont - 06/03/2019 2:41 pm CLINICAL HISTORY: SYNCOPE Headache, drowsiness COMPARISON: Head Brain Wo Cont dated 08/13/2016; HEAD BRAIN W O CONTRAST dated 12/09/2013 TECHNIQUE: All CT scans are performed using dose optimization technique as appropriate and may inclu de automated exposure control or mA/KV adjustment according to patient size. FINDINGS: Large amount of acute subarachnoid hemorrhage is present.Dilatation of the ventricular sys tem including the temporal horns is noted indicating hydrocephalus.No midline shift. The paranasal sinuses and mastoids are clear. The calvarium is intact. IMPRESSION: Marked acute subarachnoid hemorrhage is present with developing hydrocephalus. The findings were discussed with Dr. Corral in the ER On 06/03/2019 at 2:45 p.m. by telephone.
--- NOTE | 2019-06-03 15:04 | EDPHYS ---
Physician Documentation [facility] Name: Zoe Jon Age: 73 yrs Sex: Female : 1945 Arrival Date: 06/03/2019 Time: 14:12 Bed 4 Private MD: ED Physician Pablo Corral HPI: 06/03 14:22 This 73 yrs old Female presents to ER via Unassigned with complaints of kdr Collapsed, unresponsive. 14:22 The patient presents with decreased responsiveness. Onset: The symptoms/episode kdr began/occurred suddenly, just prior to arrival. Possible causes: CVA or TIA, low blood sugar, sepsis. Associated signs and symptoms: Pertinent positives: vomiting. Current symptoms: In the emergency department the patient's symptoms The patient is unresponsive on arrival. She clearly had been vomiting just prior to arrival. She had agonal breathing and was moaning. She was not responding to any verbal stimuli. Patient's baseline: Neuro: alert and fully oriented, Motor: no deficits, Ambulation: Unknown baseline. It is unknown whether or not the patient has had similar symptoms in the past. The patient has not recently seen a physician. Historical: - Allergies: 14:44 Cephalexin Monohydrate; ca1 - Home Meds: 14:44 simvastatin 10 mg Oral tab 1 tab nightly [Active]; warfarin 2.5 mg oral tab 1 tab once ca1 daily [Active]; furosemide 20 mg Oral tab once daily [Active]; lisinopril 30 mg Oral tab 1 tab once daily [Active]; amlodipine 5 mg oral tab [Active]; metoprolol succinate 25 mg oral Tb24 1 tab once daily [Active]; tamsulosin 0.4 mg oral cp24 1 cap nightly [Active]; - PMHx: 14:44 CKD; Diabetes - NIDDM; Glaucoma; High Cholesterol; Hypertension; Pacemaker; ca1 - Immunization history:: Adult Immunizations unknown. - Social history:: Smoking status: unknown. - Ebola Screening: : Unable to complete screening because. ROS: 14:22 Constitutional: Unable to assess - no information from the [facility] and EMS was not kdr given any additional information other than she was playing bingo and collapsed 14:22 Unable to obtain ROS due to obtunded state. Exam: 14:22 Constitutional: This is a well developed, well nourished patient who is unresponsive kdr and moaning. No information was present as to DNR status so the patient was electively intubated Head/Face: Normocephalic, atraumatic. Eyes: Pupils equal round and reactive to light, extra-ocular motions intact. Lids and lashes normal. Conjunctiva and sclera are non-icteric and not injected. Cornea within normal limits. Periorbital areas with no swelling, redness, or edema. Neck: Trachea midline, no thyromegaly or masses palpated, and no cervical lymphadenopathy. Supple, full range of motion without nuchal rigidity, or vertebral point tenderness. No Meningismus. Chest/axilla: Normal chest wall appearance and motion. Nontender with no deformity. No lesions are appreciated. 14:22 Cardiovascular: Regular rate and rhythm with a normal S1 and S2. No gallops, murmurs, or rubs. Normal PMI, no JVD. No pulse deficits. Respiratory: Lungs have equal breath sounds bilaterally, clear to auscultation and percussion. No rales, rhonchi or wheezes noted. No increased work of breathing, no retractions or nasal flaring. Abdomen/GI: Soft, non-tender, with normal bowel sounds. No distension or tympany. No guarding or rebound. No evidence of tenderness throughout. Back: No spinal tenderness. No costovertebral tenderness. Full range of motion. Skin: Warm, dry with normal turgor. Normal color with no rashes, no lesions, and no evidence of cellulitis. MS/ Extremity: Pulses equal, no cyanosis. Neurovascular intact. Full, normal range of motion. Neuro: GCS 3 14:22 Head/face: Vital Signs: 14:10 BP 184 / 118; Pulse 87; Resp 13 S; Temp 96.7(TE); Pulse Ox 100% on Non-rebreather mask; ca1 14:11 BP 207 / 87; Pulse 83; Resp 17 S; Pulse Ox 100% on Non-rebreather mask; ca1 14:14 BP 195 / 83; Pulse 83; Resp 12 S; Pulse Ox 100% on Non-rebreather mask; ca1 14:20 Weight 70 kg (R); ca1 14:30 BP 167 / 76; Pulse 82; Resp 17 A; Pulse Ox 100% on ETT vent; ca1 14:49 BP 170 / 78; Pulse 82; Resp 18 A; Pulse Ox 100% on ETT vent; ca1 14:58 BP 141 / 65; Pulse 83; Resp 16 A; Pulse Ox 100% on ETT vent; ca1 15:05 BP 132 / 60; Pulse 82; Resp 14 A; Pulse Ox 100% on ETT vent; ca1 15:20 BP 109 / 50; Pulse 81; Resp 16 A; Pulse Ox 100% on ETT vent; ca1 15:30 BP 102 / 85; Pulse 80; Resp 15 A; Pulse Ox 100% on ETT vent; ca1 Jessica Coma Score: 14:10 Eye Response: none(1). Verbal Response: none(1). Motor Response: none(1). Total: 3. ca1 MDM: 14:22 Data reviewed: vital signs, nurses notes, lab test result(s), radiologic studies. kdr Counseling: I had a detailed discussion with the patient and/or guardian regarding: the historical points, exam findings, and any diagnostic results supporting the discharge/admit diagnosis, lab results, radiology results, the need for further work-up and treatment in the hospital. 15:02 Patient medically screened. kdr 06/03 14:21 Order name: Basic Metabolic Panel kdr 06/03 14:21 Order name: Blood Culture Adult (2) kdr 06/03 14:21 Order name: CBC with Diff; Complete Time: 14:53 kdr 06/03 14:21 Order name: Ckmb kdr 06/03 14:21 Order name: CPK kdr 06/03 14:21 Order name: Lactate kdr 06/03 14:21 Order name: LFT's kdr 06/03 14:21 Order name: Lipase kdr 06/03 14:21 Order name: Procalcitonin kdr 06/03 14:21 Order name: Protime (+inr); Complete Time: 14:53 kdr 06/03 14:21 Order name: Ptt, Activated; Complete Time: 14:53 kdr 06/03 14:21 Order name: Troponin (emerg Dept Use Only) kdr 06/03 14:21 Order name: Urine Microscopic Only kdr 06/03 14:30 Order name: Glucose, Ancillary Testing; Complete Time: 14:53 EDMS 06/03 14:21 Order name: Chest Single View XRAY kdr 06/03 14:21 Order name: Accucheck; Complete Time: 15:00 kdr 06/03 14:21 Order name: Cardiac monitoring; Complete Time: 15:00 kdr 06/03 14:21 Order name: EKG - Nurse/Tech; Complete Time: 15:00 kdr 06/03 14:21 Order name: IV Saline Lock - Large Bore; Complete Time: 15:00 kdr 06/03 14:21 Order name: Labs collected and sent; Complete Time: 15:00 kdr 06/03 14:21 Order name: O2 Per Protocol; Complete Time: 15:00 kdr 06/03 14:21 Order name: O2 Sat Monitoring; Complete Time: 15:00 kdr 06/03 14:21 Order name: CT Head Brain wo Cont; Complete Time: 14:53 kdr 06/03 15:40 Order name: Urine Dipstick--Ancillary (enter results) 06/03 15:46 Order name: Urine Culture [facility] 06/03 14:21 Order name: Urine Dipstick-Ancillary (obtain specimen); Complete Time: 15:00 kdr Administered Medications: 14:09 Drug: Etomidate 20 mg Route: IVP; Site: left antecubital; ca1 14:09 Drug: Succinylcholine 100 mg Route: IVP; Site: left antecubital; ca1 14:15 Drug: NS 0.9% 500 ml Route: IV; Rate: bolus; Site: right antecubital; ca1 15:41 Follow up: Response: No adverse reaction; IV Status: Completed infusion ca1 14:25 Drug: Propofol 5 mcg/kg/min {Note: Started at 10mcg/kg/min.} Route: IV; Rate: ca1 calculated rate; Site: left antecubital; 15:38 Follow up: Bolus 30mg given at 1520. And rate incresed to 25mcg/kg/min at 1525 ca1 15:41 Follow up: Response: No adverse reaction; Patient is sedated; IV Status: Infusion ca1 continued upon transfer 14:54 Drug: niCARdipine (25mg/250mL) 5 mg/h Route: IV; Rate: calculated rate; Site: left hand;ca1 15:20 Follow up: IV Status: Order to discontinue infusion; Order to discontinue infusion, BP ca1 109/50 at 1520 Disposition: 06/03/19 15:[address] [facility]. Diagnosis is Acute subarachnoid Hemorrhage. - Reason for transfer: Higher level of care. - Accepting physician is Demoni. - Condition is Critical. - Problem is new. - Symptoms are unchanged. Signatures: Dispatcher [employer] Pablo Jackson MD MD kdr Brayden Batista, FLIGHT CONTROL MANAGER FLIGHT CONTROL MANAGER Stormy Fierro RN RN ca1 Corrections: (The following items were deleted from the chart) 16:05 15:02 06/03/2019 15:[address] [facility]. Diagnosis is ca1 Acute subarachnoid Hemorrhage. Reason for transfer: Higher level of care. Accepting physician is Demoni. Condition is Critical. Problem is new. Symptoms are unchanged. kdr
--- NOTE | 2019-06-03 15:04 | ER ---
Nurse's Notes [facility] Name: Zoe Jon Age: 73 yrs Sex: Female : 1945 Arrival Date: 06/03/2019 Time: 14:12 Bed 4 Private MD: Diagnosis: Acute subarachnoid Hemorrhage Presentation: 06/03 14:07 Presenting complaint: EMS states: Pt was playing bingo with friends when she fell out ca1 and started vomiting. Upon arrival at scene, pt unresponsive, groan and moan to pain stimuli. Vomited 3x en route. Unable to obtain hx, just pt was Insulin dependent diabetic. Transition of care: patient was not received from another setting of care. Onset of symptoms was June 03, 2019. Risk Assessment: Do you want to hurt yourself or someone else? Patient reports no desire to harm self or others. Initial Sepsis Screen: Does the patient meet any 2 criteria? No. Patient's initial sepsis screen is negative. Does the patient have a suspected source of infection? No. Patient's initial sepsis screen is negative. Care prior to arrival: Medication(s) given: zofran 4 mg, Narcan IV initiated. 20 GA, in the left hand, Glucose check: 220 Oxygen administered. via a non-rebreather mask. 14:07 Acuity: TRISTAN 1 ca1 14:07 Method Of Arrival: EMS: [facility] ca1 Triage Assessment: 14:19 General: Appears. ca1 Historical: - Allergies: 14:44 Cephalexin Monohydrate; ca1 - Home Meds: 14:44 simvastatin 10 mg Oral tab 1 tab nightly [Active]; warfarin 2.5 mg oral tab 1 tab once ca1 daily [Active]; furosemide 20 mg Oral tab once daily [Active]; lisinopril 30 mg Oral tab 1 tab once daily [Active]; amlodipine 5 mg oral tab [Active]; metoprolol succinate 25 mg oral Tb24 1 tab once daily [Active]; tamsulosin 0.4 mg oral cp24 1 cap nightly [Active]; - PMHx: 14:44 CKD; Diabetes - NIDDM; Glaucoma; High Cholesterol; Hypertension; Pacemaker; ca1 - Immunization history:: Adult Immunizations unknown. - Social history:: Smoking status: unknown. - Ebola Screening: : Unable to complete screening because. Screenin:12 Abuse screen: Denies threats or abuse. Denies injuries from another. Nutritional ca1 screening: No deficits noted. Tuberculosis screening: No symptoms or risk factors identified. Fall Risk IV access (20 points). Assessment: 14:12 General: Behavior is unresponsive. Pain: Unable to use pain scale. Patient is ca1 unresponsive. Neuro: Level of Consciousness is unresponsive, Pt moans to painful stimuli. Pupils are equal and round, sluggishly reactive to light. Unable to follow commands. Cardiovascular: Heart tones S1 S2 present Rhythm is sinus rhythm. Respiratory: Airway is patent Respiratory effort is shallow, Respiratory pattern is agonal. GI: Abdomen is round non-distended, Bowel sounds present X 4 quads. Pt vomited 3x AUTO STRIPER. : No deficits noted. No signs and/or symptoms were reported regarding the genitourinary system. Derm: Skin is intact, is healthy with good turgor, Skin is pink, warm \T\ dry. 14:12 EENT: Absence of teeth or dentures noted. ca1 14:12 Neuro:. Cardiovascular: Rhythm is sinus rhythm. ca1 14:19 Reassessment: Dr. Corral at bedside. ca1 14:20 Neuro: Level of Consciousness is Pt opening eyes and attempting to bite ET tube. ca1 Notified provider, Propofol ordered. 14:20 Cardiovascular: Rhythm is sinus rhythm. Respiratory: Airway via oral intubation ca1 Respiratory effort is even, unlabored, assisted ventilations via ET tube. : Urine is clear. Derm: Skin is pink, warm \T\ dry. 15:05 Reassessment: Patient appears in no apparent distress at this time. Contacted pt sg sister, Christina Hoang, informed of pt condition and need for transfer, pt family stated understanding, no family in area per pt sister, no family/friend at bedside at this time, pt to be transferred, reported to Stormy FINE, Primary RN for patient. 15:15 Reassessment: Report given to RODY Yates of [facility] Neuro ICU. ca1 15:25 Reassessment: Pt moved arms and attempted to pull out ET tube. Notified provider. ca1 Propofol Bolus given and rate increased. 15:25 Reassessment: Pt vomited once. Suctioned secretions. OGT inserted. Notified provider. ca1 15:25 Reassessment: Patient appears in no apparent distress at this time. ca1 15:30 Cardiovascular: Rhythm is sinus rhythm. Respiratory: Airway via oral intubation ca1 Respiratory effort is even, unlabored, assisted Respiratory pattern is regular, symmetrical. Derm: Skin is pink, warm \T\ dry. Vital Signs: 14:10 BP 184 / 118; Pulse 87; Resp 13 S; Temp 96.7(TE); Pulse Ox 100% on Non-rebreather mask; ca1 14:11 BP 207 / 87; Pulse 83; Resp 17 S; Pulse Ox 100% on Non-rebreather mask; ca1 14:14 BP 195 / 83; Pulse 83; Resp 12 S; Pulse Ox 100% on Non-rebreather mask; ca1 14:20 Weight 70 kg (R); ca1 14:30 BP 167 / 76; Pulse 82; Resp 17 A; Pulse Ox 100% on ETT vent; ca1 14:49 BP 170 / 78; Pulse 82; Resp 18 A; Pulse Ox 100% on ETT vent; ca1 14:58 BP 141 / 65; Pulse 83; Resp 16 A; Pulse Ox 100% on ETT vent; ca1 15:05 BP 132 / 60; Pulse 82; Resp 14 A; Pulse Ox 100% on ETT vent; ca1 15:20 BP 109 / 50; Pulse 81; Resp 16 A; Pulse Ox 100% on ETT vent; ca1 15:30 BP 102 / 85; Pulse 80; Resp 15 A; Pulse Ox 100% on ETT vent; ca1 [place] Coma Score: 14:10 Eye Response: none(1). Verbal Response: none(1). Motor Response: none(1). Total: 3. ca1 ED Course: 14:05 Inserted saline lock: 20 gauge in left antecubital area, using aseptic technique. ca1 ,using aseptic technique. By RODY Lynn Blood collected. 14:12 Patient arrived in ED. iw 14:12 Patient has correct armband on for positive identification. Placed in gown. Bed in low ca1 position. Side rails up X2. heavy equipment plumbing supervisor on. Pulse ox on. Sitter at bedside. Warm blanket given. 14:15 Assisted provider with intubation using 6.0 mm ETT via oral route. ET tube secured at ca1 22cm at the lips. Set up intubation tray. Intubated by Pablo Corral MD Placement verified by CO2 detector w/ + color change, auscultating bilateral breath sounds, Patient tolerated well. 14:19 Stormy Garza RN is Primary Nurse. ca1 14:19 Arm band placed on right wrist. ca1 14:20 Pablo Corral MD is Attending Physician. kdr 14:20 Alvarado cath inserted, using sterile technique, 16 Fr., by ED staff, balloon inflated, to ca1 gravity drainage, urine specimen collected. returned clear yellow urine. Patient tolerated well. 14:23 Triage completed. ca1 14:34 EKG done, by coroner technician. reviewed by Pablo Corral MD. at1 14:42 CT Head Brain wo Cont In Process Unspecified. EDMS 14:47 initiated a transfer with Karen from the [facility]. eb 14:[address] Evans the Neurologist manager transfusion for [facility] with Dr. Corral for patient transfer consultation. 14:53 Inserted saline lock: 22 gauge in left hand, using aseptic technique. ,using aseptic ca1 technique. by RODY Ospina Blood collected. 14:57 administrative approval given by aKren Mascorro/ patient has been accepted to [facility] eb 7 south 5 bed 14/ Dr. Evans has accepted the patient in transfer/ report to be called to [phone]. 15:05 Chest Single View XRAY In Process Unspecified. EDMS 15:25 NGT: inserted 14 Fr. other via mouth verified placement of air over stomach, to ca1 intermittent suction. Returned gastric contents. Patient tolerated well. OGT inserted. 15:48 Patient transferred, IV remains in place. ca1 Administered Medications: 14:09 Drug: Etomidate 20 mg Route: IVP; Site: left antecubital; ca1 14:09 Drug: Succinylcholine 100 mg Route: IVP; Site: left antecubital; ca1 14:15 Drug: NS 0.9% 500 ml Route: IV; Rate: bolus; Site: right antecubital; ca1 15:41 Follow up: Response: No adverse reaction; IV Status: Completed infusion ca1 14:25 Drug: Propofol 5 mcg/kg/min {Note: Started at 10mcg/kg/min.} Route: IV; Rate: ca1 calculated rate; Site: left antecubital; 15:38 Follow up: Bolus 30mg given at 1520. And rate incresed to 25mcg/kg/min at 1525 ca1 15:41 Follow up: Response: No adverse reaction; Patient is sedated; IV Status: Infusion ca1 continued upon transfer 14:54 Drug: niCARdipine (25mg/250mL) 5 mg/h Route: IV; Rate: calculated rate; Site: left hand;ca1 15:20 Follow up: IV Status: Order to discontinue infusion; Order to discontinue infusion, BP ca1 109/50 at 1520 Intake: Outcome: 15:02 ER care complete, transfer ordered by . kdr 15:49 Transferred by helicopter to [facility], Transfer form completed. ca1 X-rays sent w/ patient. Note: Report given to [facility] 15:49 Condition: stable ca1 15:49 Instructed on the need for admit. 16:05 Patient left the ED. ca1 Addendum: 06/06/2019 17:54 Addendum: Culture Results: Positive urine culture. Phone call Attempt #1 Culture report s s Faxed to [facility] ATTN Luis. Signatures: Dispatcher [employer] EDMS Vicente Duckworth RN RN sg Rittger, Kevin, MD MD kdr Leah Perez RN RN Melinda Baker RN RN ss Laura Cardoza, rotary shear worker helper EKG Tat1 Cindy Prather Cheryl RN RN ca1 Corrections: (The following items were deleted from the chart) 12 15:16 14:19 BP 184 / 118; Pulse 87bpm; Resp 13bpm; Spontaneous; Pulse Ox 100% Non-rebreather ca1 mask; Temp 97.6F Temporal; ca1 15:38 14:25 Propofol 5 mcg/kg/min IV at calculated rate in left antecubital ca1 ca1 16:01 14:12 : No deficits noted. No signs and/or symptoms were reported regarding the ca1 genitourinary system. ca1 16:10 14:20 EENT: Absence of teeth or dentures noted. ca1 ca1 16:10 15:25 Reassessment: Pt vomited once. Suctioned secretions. OGT inserted. Notified ca1 provider. ca1 16:13 14:19 BP 184 / 118; Pulse 87bpm; Resp 13bpm; Spontaneous; Pulse Ox 100% Non-rebreather ca1 mask; Temp 96.7F Temporal; ca1 16:14 14:19 Presenting complaint: EMS states: Pt was playing bingo with friends when she fell ca1 out and started vomiting. Upon arrival at scene, pt unresponsive, groan and moan to pain stimuli. Vomited 3x en route. Unable to obtain hx, just pt was Insulin dependent diabetic. ca1 16:14 14:19 Transition of care: patient was not received from another setting of care. ca1 ca1 16:14 14:19 Onset of symptoms was June 03, 2019 ca1 ca1 16: 14:19 Risk Assessment: Do you want to hurt yourself or someone else? Patient reports no ca1 desire to harm self or others. ca1 16: 14:19 Initial Sepsis Screen: Does the patient meet any 2 criteria? No. Patient's ca1 initial sepsis screen is negative. Does the patient have a suspected source of infection? No. Patient's initial sepsis screen is negative. ca1 16: 14:19 Care prior to arrival: Medication(s) given: zofran 4 mg, Narcan IV initiated. 20 ca1 GA, in the left hand, Glucose check: 220 Oxygen administered. via a non-rebreather mask, ca1 16: 14:19 Method Of Arrival: EMS: [facility] ca1 ca1 16: 14:19 Acuity: TRISTAN 1 ca1 ca1 16:19 14:30 BP 207 / 87; Pulse 83bpm; Resp 17bpm; Spontaneous; Pulse Ox 100% Non-rebreather ca1 mask; ca1
[2019-06-03 15:10] LABS: ALT/SGPT 13 U/L (12-78); AST/SGOT 26 U/L (15-37); Alkaline Phosphatase 135 U/L (45-117); BUN Blood Urea Nitrogen 46 mg/dL (7-18); Bicarbonate 24 mmol/L (21-32); Bilirubin Direct 0.2 mg/dL (0-0.2); Bilirubin Total 0.5 mg/dL (0.2-1.0); Creatine Phosphokinase 69 U/L (26-192); Glucose Level 268 mg/dL (74-106); Lipase 27 U/L (73-393); Protein, Total 7.7 g/dL (6.4-8.2); Sodium Level 141 mmol/L (136-145); Troponin (Emerg Dept Use Only) < 0.02 ng/mL (0.0-0.045)
--- NOTE | 2019-06-03 15:30 | RAD REPORT ---
EXAM DESCRIPTION: RAD - Chest Single View - 06/03/2019 3:02 pm CLINICAL HISTORY: Transient alteration of awareness, unresponsive COMPARISON: April 2018 TECHNIQUE: AP portable chest image was obtained 1456 hours . FINDINGS: Endotracheal tube has been placed. Tip is at the T4 level just above the aortic arch. This is well above the jose. Pacemaker is in place. Sternotomy wires and cardiac valve surgical changes noted. No pulmonary edema or acute lung parenchymal process. Interstitial pattern is not substantial ly different. Heart and vasculature are normal. No measurable pleural effusion and no pneumothorax. N o acute bony abnormality seen. No acute aortic findings suspected. IMPRESSION: No pulmonary edema, focal infiltrate or acute cardiopulmonary finding. Endotracheal tube in good position.
[2019-06-03 15:44] LABS: Urine Bacteria 20-50 /HPF (<20); Urine Culture Reflex Order REFLEXED; Urine RBC <5 /HPF (NONE SEEN)
[2019-06-03 15:45] LABS: Urine Blood 2+ (NEG); Urine Glucose TRACE (NEG); Urine Protein 2+ (NEG); Urine Specific Gravity 1.015 (1.005-1.030)
[2019-06-03 18:21] VITALS: TEMP 96.7; O2SAT 100
[2019-06-03 18:23] VITALS: BP 207/87
--- NOTE | 2019-06-04 17:20 | EKG ---
Test Date: 2019-06-03 Test Time: 14:20:47 Multimedia Educational Specialist: [place] MEASUREMENT RESULTS: Intervals: Rate: 81 ND: 144 QRSD: 176 QT: 504 QTc: 585 [place]ston: P: 103 ND: 144 QRS: -81 T: 85 INTERPRETIVE STATEMENTS: AV sequential or dual chamber electronic pacemaker Compared to ECG 05/14/2018 22:45:19 No significant changes Electronically Signed On 06-04-19 17:19:01 COMMUNITY NUTRITION EDUCATOR by Javier Streeter
== END 2019-06-03 16:05 | disposition short-term general hospital (02) ==
LOC: ER 14:06
DX: I60.9 Nontraumatic subarachnoid hemorrhage, unspecified (principal); I10 Essential (primary) hypertension; E11.9 Type 2 diabetes mellitus without complications; E11.22 Type 2 diabetes mellitus with diabetic chronic kidney disease; I12.9 Hypertensive chronic kidney disease with stage 1 through stage 4 chronic kidney disease, or unspecified chronic kidney disease; N18.9 Chronic kidney disease, unspecified; Z79.01 Long term (current) use of anticoagulants; Z88.8 Allergy status to other drugs, medicaments and biological substances; Z95.0 Presence of cardiac pacemaker
CPT/HCPCS: 96365; 96368; 93005; 87040 ×2; 87088; 85025; 87086; 80048; 36415; 82550; 87205 ×2; 85610; 82947; 80076; 83605; 85730; 87077; 87186; 84484; 82553; 83690; 84145; 70450; 71045; 94002; 31500; 51702; 96375; 99291; J0330; J2704; J2250; J7030; 81003; 81015